=== PATIENT | female | born 1945 | race Caucasian/White ===

== ENCOUNTER 2021-02-17 16:50 | Inpatient (IN) | payer OTHER, BC, SELFPAY ==
[~2021-02-17] VITALS: Ht 157.5 cm; Wt 87.3 kg
--- NOTE | 2021-02-17 16:50 | NUR ---
Pt to bed 5 for evaluation.
[2021-02-17 16:55] VITALS: BP_SYST 189
--- NOTE | 2021-02-17 16:55 | NUR ---
Pt BIB ambulance for nausea, vomiting, and abdominal pain. Pt has been in pain x 2-3 days with 2 episodes of vomiting today. Pt has extensive medical history with candidiasis, DM, Kidney transplant status, hypothyroid, hyperlipidemia, hypertensive heart disease,afib, pressure ulcers, ESRD, and cerebral infarct.
--- NOTE | 2021-02-17 17:05 | NUR ---
Dr. Bowens at bedside to assess.
--- NOTE | 2021-02-17 17:35 | NUR ---
DR BLAKE CANCELLED ABD XRAY AND ORDERED ABD CT SCAN INSTEAD.
--- NOTE | 2021-02-17 17:37 | NUR ---
PRODUCT STEWARD AT BEDSIDE FOR BLOOD DRAW
[2021-02-17 18:08] LABS: HEMATOCRIT 36.4 % (36-48); HEMOGLOBIN 11.7 g/dL (12.0-16.0); LYMPHOCYTES # (AUTO) 0.5 K/uL (1.0-5.5); LYMPHOCYTES % (AUTO) 4.7 % (20.5-51.5); MEAN CORPUSCULAR HEMOGLOBIN 30 pg (27-31); MEAN CORPUSCULAR HGB CONC 32 % (32-36); MEAN CORPUSCULAR VOLUME 92 fL (79.0-98.0); MONOCYTES # (AUTO) 0.5 K/uL (0.0-1.0); MONOCYTES % (AUTO) 4.3 % (1.7-9.3); PLATELET COUNT (AUTO) 294 K/uL (130-430); RED BLOOD CELL COUNT(AUTO) 3.94 MIL/uL (4.2-6.2); RED CELL DISTRIBUTION WIDTH 16.4 % (9.0-15.0)
[2021-02-17] MEDS ORDERED: NACL 0.9% 1,000 ML IV ONE (18:15)
[2021-02-17] MEDS ORDERED: KETOROLAC TROMETHAMINE 15 MG VIAL IVP ONE (18:15)
--- NOTE | 2021-02-17 18:19 | NUR ---
MEDICATED ORDERED, AND TAKEN TO CT SCAN
[2021-02-17 18:26] LABS: ALANINE AMINOTRANSFERASE 12 U/L (12-78); ALBUMIN 2.5 g/dL (3.4-4.8); ANION GAP 18 (5-15); ASPARTATE AMINOTRANSFERASE 22 U/L (10-37); CALCIUM 10.7 mg/dL (8.4-11.0); CHLORIDE 95 mmol/L (98-107); CREATININE 4.74 mg/dL (0.55-1.30); GLUCOSE 281 mg/dL (70-99); LIPASE 140 U/L (73-393); SODIUM SERUM 126 mmol/L (136-145); TOTAL BILIRUBIN 0.7 mg/dL (0.0-1.0)
--- NOTE | 2021-02-17 18:36 | NUR ---
# 16 FR In and Out catheter with use of sterile technique. Immediate return of ml urine noted. Urine sample collected and sent to lab. Pt tolerated procedure . Patient unable to toilet self.
[2021-02-17 18:42] LABS: POTASSIUM 5.8 mmol/L (3.5-5.1); UREA NITROGEN, BLOOD 102 mg/dL (8-21)
[2021-02-17 19:00] LABS: BILIRUBIN,URINE NEGATIVE (NEGATIVE); BLOOD, URINE 3+ (NEGATIVE); CLARITY/URINE SL CLOUDY (CLEAR); COLOR,URINE RED (YELLOW); GLUCOSE,URINE NEGATIVE (NEGATIVE); KETONES,URINE 1+ (NEGATIVE); LEUKOCYTE ESTERASE ,URINE 3+ (NEGATIVE); NITRITE, URINE NEGATIVE (NEGATIVE); PROTEIN URINE 2+ (NEGATIVE); UROBILINOGEN,URINE 0.2 (0.2-1.0)
[2021-02-17] MEDS ORDERED: DEXTROSE 50% JECT 50 ML DISP.SYRIN IVP ONE (19:00)
[2021-02-17] MEDS ORDERED: SODIUM BICARBONATE 0.5 MEQ/ML VIAL INJ ONE (19:00)
[2021-02-17] MEDS ORDERED: CALCIUM GLUCONATE 1 GM/10 ML VIAL IVP ONE (19:00)
[2021-02-17] MEDS ORDERED: INSULIN REGULAR, HUMAN 10 UNITS/0.1 ML INJ IVP ONE (19:00)
[2021-02-17] MEDS ORDERED: SODIUM POLYSTYRENE SULFONATE 15 GM/60 ML UDBTL PO ONE (19:00)
[2021-02-17 19:02] LABS: BACTERIA,URINE MANY /HPF (None Seen); MUCUS,URINE None Seen /LPF (None Seen); RBC,URINE 50-80 /HPF (0-3); WBC,URINE >100 /HPF (0-3)
[2021-02-17 19:22] LABS: ACETONE, SERUM SMALL (NEGATIVE)
--- NOTE | 2021-02-17 19:45 | NUR ---
Patient will be admitted to care of DR SPRINGER. Admitted to TELE unit. Will go to room TBD. Belongings list completed. Complete and up to date summary report printed. SBAR report to be given at bedside with opportunity for questions.
[2021-02-17] MEDS ORDERED: SODIUM BICARBONATE 8.4% JECT 50 MEQ/50 ML SYRINGE ONE (19:56)
[2021-02-17] MEDS ORDERED: CEFEPIME 2 GM in D5W 100 ML IV ONE (20:00)
[2021-02-17] MEDS ORDERED: hydrALAZINE HCL 20 MG/ML VIAL IVP ONE (20:00)
[2021-02-17] MEDS ORDERED: 0.45% NS 1,000 ML IV SCH (20:00)
[2021-02-17] MEDS ORDERED: CEFEPIME 1 GM/VIAL (MAXIPIME) ONE (20:56)
[2021-02-17] MEDS ORDERED: INSULIN REGULAR, HUMAN 100 UNITS in NS 99 ML IV PRN ×2 (21:15)
[2021-02-17] MEDS ORDERED: INSULIN REGULAR, HUMAN 10 UNITS/0.1 ML INJ ONE (21:20)
[2021-02-17] MEDS ORDERED: NACL 0.9% 1,000 ML IV SCH (21:45)
[2021-02-17] MEDS: NACL 0.9% 1,000 ML IV SCH (22:00)
[2021-02-17] MEDS ORDERED: PIPERACILLIN/TAZO 3.375 GM in NS 50 ML IV SCH (22:00)
--- NOTE | 2021-02-17 22:30 | NUR ---
PT RECIEVED AN IN/OUT CATH FOR URINE. PT TOLERATED WELL. BROWNISH PURULENT URINE DRAINED
[2021-02-17 23:52] LABS: ANION GAP 18 (5-15); CALCIUM 10.2 mg/dL (8.4-11.0); CHLORIDE 99 mmol/L (98-107); CREATININE 4.59 mg/dL (0.55-1.30); GLUCOSE 265 mg/dL (70-99); POTASSIUM 4.9 mmol/L (3.5-5.1); SODIUM SERUM 130 mmol/L (136-145); UREA NITROGEN, BLOOD 100 mg/dL (8-21)
--- NOTE | 2021-02-18 00:30 | NUR ---
PT SLEEPING IN BED. CONSTANT MONITORING VSS. BG CHECKED EVREY HOUR
[2021-02-18] MEDS ORDERED: SODIUM BICARBONATE 8.4% JECT 50 MEQ/50 ML SYRINGE IVP ONE (02:00)
--- NOTE | 2021-02-18 02:20 | NUR ---
# 22 gauge angiocath placed to LAC. Use of asceptic technique. Opsite placed over site. Blood return noted. Flushed with 10 cc of normal saline. No evidence of infiltration noted. Patient tolerated well.
[2021-02-18] MEDS ORDERED: LABETALOL 100 MG/ 20ML VIAL ONE (04:20)
[2021-02-18] MEDS ORDERED: LABETALOL 100 MG/ 20ML VIAL IVP ONE (04:30)
[2021-02-18] MEDS ORDERED: METOCLOPRAMIDE HCL 10 MG/2 ML VIAL IVP ONE (05:30)
--- NOTE | 2021-02-18 06:00 | NUR ---
DR. RAMIREZ INFORMED OF BG. TOLD TO D/C INSULIN.
[2021-02-18 06:53] LABS: BASOPHILS % (AUTO) 0.1 % (0.0-2.0); EOSINOPHILS % (AUTO) 0.4 % (0.0-4.0); HEMATOCRIT 33.6 % (36-48); HEMOGLOBIN 10.9 g/dL (12.0-16.0); LYMPHOCYTES # (AUTO) 0.6 K/uL (1.0-5.5); LYMPHOCYTES % (AUTO) 5.9 % (20.5-51.5); MEAN CORPUSCULAR HEMOGLOBIN 29 pg (27-31); MEAN CORPUSCULAR HGB CONC 33 % (32-36); MONOCYTES # (AUTO) 0.9 K/uL (0.0-1.0); MONOCYTES % (AUTO) 9.6 % (1.7-9.3); NEUTROPHILS # (AUTO) 8.2 K/uL (1.8-7.7); PLATELET COUNT (AUTO) 262 K/uL (130-430); RED BLOOD CELL COUNT(AUTO) 3.72 MIL/uL (4.2-6.2); WHITE BLOOD COUNT (AUTO) 9.8 K/uL (4.8-10.8)
--- NOTE | 2021-02-18 07:08 | NUR ---
REPORT GIVEN TO MATILDE BUENO
[2021-02-18] MEDS ORDERED: DEXTROSE 50% JECT 50 ML DISP.SYRIN IVP PRN ×2 (07:30→09:15)
[2021-02-18] MEDS ORDERED: INSULIN REGULAR, HUMAN 100 UNITS in NS 99 ML IV PRN ×2 (07:30)
[2021-02-18] MEDS ORDERED: PANT40GR PO (07:59)
[2021-02-18] MEDS ORDERED: MAGN64TA13 PO (07:59)
[2021-02-18] MEDS ORDERED: CLOP75TA2 PO (07:59)
[2021-02-18] MEDS ORDERED: LEVO50CA4 PO (07:59)
[2021-02-18] MEDS ORDERED: MYCO250C PO (07:59)
[2021-02-18] MEDS ORDERED: PRED5TAB PO (07:59)
[2021-02-18 08:00] LABS: ANION GAP 15 (5-15); CALCIUM 9.3 mg/dL (8.4-11.0); CHLORIDE 102 mmol/L (98-107); CREATININE 4.67 mg/dL (0.55-1.30); GLUCOSE 154 mg/dL (70-99); SODIUM SERUM 137 mmol/L (136-145)
[2021-02-18 08:04] LABS: MEAN CORPUSCULAR VOLUME 90 fL (79.0-98.0)
--- NOTE | 2021-02-18 08:05 | NUR ---
bgm 193 per protocol placed on regular insu;in gtt at 0.5units per hr 0r 0.5 cc/hr
[2021-02-18 08:14] LABS: ALANINE AMINOTRANSFERASE 10 U/L (12-78); ALBUMIN 2.1 g/dL (3.4-4.8); ASPARTATE AMINOTRANSFERASE 16 U/L (10-37); CHOLESTEROL 102 mg/dL (<200); HDL CHOLESTEROL 19 mg/dL (>55); LDL CHOLESTEROL 40 mg/dL (<100); THYROID STIMULATING HORMONE 1.93 uIu/mL (0.34-4.82); TOTAL BILIRUBIN 0.3 mg/dL (0.0-1.0); TRIGLYCERIDES 137 mg/dL (30-150)
[2021-02-18] MEDS ORDERED: ONDANSETRON HCL 4 MG/2 ML VIAL IVP ONE (08:15)
[2021-02-18] MEDS ORDERED: ONDANSETRON HCL 4 MG/2 ML VIAL ONE (08:22)
--- NOTE | 2021-02-18 08:50 | NUR ---
UPDATE AND PLAN OF CARE GIVEN TO STEPHANIE PTS DAUGHTER [phone]
[2021-02-18 08:55] LABS: UREA NITROGEN, BLOOD 101 mg/dL (8-21)
--- NOTE | 2021-02-18 08:56 | NUR ---
bgm 188 no change in insulin drip remains at 0.5 units per hour
--- NOTE | 2021-02-18 09:04 | NUR ---
DC INSULIN GTT PER MD ORDERS
[2021-02-18] MEDS ORDERED: GLUCOSE (DEXTROSE) ORAL GEL -Adults PO PRN (09:15)
[2021-02-18] MEDS ORDERED: D5W 1,000 ML IV PRN (09:15)
--- NOTE | 2021-02-18 10:14 | NUR ---
PT PLACED IN HOSPITAL BED
--- NOTE | 2021-02-18 11:15 | NUR ---
BGM 221`
[2021-02-18] MEDS ORDERED: INSULIN REGULAR, HUMAN 10 UNITS/0.1 ML INJ ONE (11:22)
--- NOTE | 2021-02-18 11:23 | NUR ---
BGM 221 COVERED WITH 4 UNITS HUMULIN REGULAR INSULIN SQ RIGHT ABDOMEN
--- NOTE | 2021-02-18 12:12 | NUR ---
GRAM NEG RODS BC FROM YESTERDAY DR SPRINGER CALLED
--- NOTE | 2021-02-18 13:54 | NUR ---
CONSULTATION PAGED/CALLED Reason for Consultation: [] HTN URGENCY Person Who was Notified: [] NICKOLAS ADEN Consulting Physician: [] DR NICKOLAS ART Radio Operator Ground Specialty: [] CARDIO Ordering Physician: [] LINOTYPER MS Anand HENSON/DR SPRINGER
--- NOTE | 2021-02-18 13:57 | NUR ---
Patient will be admitted to [facility]. Admitted to TELE unit. Will go to room 118. Belongings list completed. Complete and up to date summary report printed. SBAR report to be given at bedside with opportunity for questions.
[2021-02-18 14:00] VITALS: BP_SYST 130
--- NOTE | 2021-02-18 14:01 | NUR ---
CONSULTATION PAGED/CALLED Reason for Consultation: [] DM Person Who was Notified: [] LEFT A VOICE MESSAGE Consulting Physician: [] DR ROSARIO SAYED Natural Gas Technician Specialty: [] ENDOCRINE Ordering Physician: [] VASCULAR SONOGRAPHER MS Anand HENSON/DR SPRINGER
--- NOTE | 2021-02-18 14:30 | NUR ---
IV INFILTRATION IV ON LEFT FOREARM NOTED TO BE LEAKING. IV REMOVED. ATTEMPTED TO INSERT AN IV ON RIGHT FOREARM BUT FAILED. PATIENT HAS MULTIPLE BRUISES ON BOTH ARMS, MAKING IT DIFFICULT TO INSERT AN IV. WILL TRY AGAIN. SAFETY CHECKS DONE. CALL LIGHT WITHIN REACH.
[2021-02-18 14:56] VITALS: BP_SYST 130
--- NOTE | 2021-02-18 15:30 | NUR ---
IV INSERTION SUCCESSFULLY INSERTED AN IV GAUGE 22 ON LEFT FOREARM. HOOKED TO IV FLUIDS, INFUSING WELL. PATIENT IS RESTLESS IN BED. REMOVES GOWN AND TELE MONITOR. EDUCATION PROVIDED BUT PATIENT DID NOT VERBALIZE UNDERSTANDING. FALL AND SAFETY CHECKS DONE. CALL LIGHT WITHIN REACH. ENCOURAGED PATIENT TO CALL ANYTIME FOR HELP BUT PATIENT SEEMED CONFUSED. WILL CLOSELY MONITOR.
[2021-02-18] MEDS ORDERED: [UNRECOGNIZED DRUG - OTHER] IV SCH (17:00)
[2021-02-18] MEDS ORDERED: NIFEdipine 30 MG TAB.ER.24 PO ONE (17:30)
[2021-02-18] MEDS ORDERED: hydrALAZINE HCL 20 MG/ML VIAL IVP PRN (17:30)
[2021-02-18] MEDS: NACL 0.9% 1,000 ML IV SCH (18:00)
[2021-02-18] MEDS: INSULIN REGULAR, HUMAN 100 UNITS/ML, 10 ML VIAL (humuLIN R) SUBCUT PRN (18:06)
--- NOTE | 2021-02-18 18:55 | NUR ---
CLOSING NOTES SEEN AND EXAMINED BY DR. VALDIVIA AT BEDSIDE. IV FLUIDS STILL INFUSING WELL, NO SIGN OF INFILTRATION ON IV SITE. ALL NEEDS MET THROUGHOUT SHIFT. PATIENT STILL DENIES ANY PAIN. NO SHORTNESS OF BREATH ON ROOM AIR. COOPERATIVE AT THIS TIME. CALL LIGHT WITHIN REACH.
[2021-02-18] MEDS ORDERED: PIPERACILLIN/TAZO 2.25G/DEX-IS 50 ML IV SCH (19:51)
[2021-02-18] MEDS ORDERED: TACROLIMUS ANHYDROUS 1 MG CAPSULE (PROGRAF) PO ONE (20:00)
[2021-02-18 20:20] VITALS: BP_SYST 97
--- NOTE | 2021-02-18 20:20 | NUR ---
Opening noes Pt AAOx1-2, VSS, afebrile. No s/s distress noted. No vomitting noted. IVF infusing at ordered rate L. FA 22G no s/s infiltration. Call light within reach. Bed low, locked, siderails up x3, alarm on. Pt near nursing station to be monitored closely.
[2021-02-18] MEDS: MAGNESIUM CHLORIDE 64 MG TABLET.DR PO SCH (21:42)
[2021-02-18] MEDS: mycophenolate mofetiL 250 MG CAPSULE PO SCH (21:42)
[2021-02-18] MEDS: PANTOPRAZOLE SODIUM 40 MG TAB PO SCH (21:42)
--- NOTE | 2021-02-18 21:42 | NUR ---
Med pass Pt alert, awake, scheduled meds passed crushed w/ applesauce. No coughing noted. Aspiration precautions maintained. To monitor.
[2021-02-18] MEDS: CEFEPIME 1 GM in D5W 50 ML IV SCH (22:01)
[2021-02-19 00:42] VITALS: BP_SYST 132
[2021-02-19] MEDS: PIPERACILLIN/TAZO 2.25G/DEX-IS 50 ML IV SCH ×3 (02:00→17:31)
--- NOTE | 2021-02-19 05:20 | NUR ---
Nutrition Update Fortunato Scale 14 noted. Pt admitted for Acute Renal Failure Diet: 2gm Na BMI: 30.2 kg/m2 RD to follow per nutrition care standards.
[2021-02-19] MEDS: LEVOTHYROXINE SODIUM 0.05 MG TABLET PO SCH (06:16)
[2021-02-19] MEDS: INSULIN REGULAR, HUMAN 100 UNITS/ML, 10 ML VIAL (humuLIN R) SUBCUT PRN (06:23)
--- NOTE | 2021-02-19 06:30 | NUR ---
Closing notes Pt asleep, easily awakens. No s/s distress noted. BS checked 161, 2 units Regular insulin administered. New IV bag kyle L. FA 22G no s/s infiltration. Pt anuric. Call light within reach. Bed low, locked, siderails up x3, alarm on. Will endorse to AM nurse to clarify with ID doctor which antibiotic to give.
[2021-02-19 06:34] LABS: BASOPHILS # (AUTO) 0.1 K/uL (0.0-0.2); BASOPHILS % (AUTO) 0.8 % (0.0-2.0); EOSINOPHILS # (AUTO) 0.2 K/uL (0.0-0.4); EOSINOPHILS % (AUTO) 2.8 % (0.0-4.0); HEMATOCRIT 31.7 % (36-48); HEMOGLOBIN 10.3 g/dL (12.0-16.0); LYMPHOCYTES # (AUTO) 0.6 K/uL (1.0-5.5); LYMPHOCYTES % (AUTO) 7.8 % (20.5-51.5); MEAN CORPUSCULAR HEMOGLOBIN 29 pg (27-31); MEAN CORPUSCULAR HGB CONC 33 % (32-36); MEAN CORPUSCULAR VOLUME 90 fL (79.0-98.0); MONOCYTES # (AUTO) 0.9 K/uL (0.0-1.0); NEUTROPHILS # (AUTO) 5.3 K/uL (1.8-7.7); NEUTROPHILS % (AUTO) 75.6 % (40.0-70.0); PLATELET COUNT (AUTO) 239 K/uL (130-430); RED BLOOD CELL COUNT(AUTO) 3.51 MIL/uL (4.2-6.2)
[2021-02-19] MEDS: NACL 0.9% 1,000 ML IV SCH (06:40)
[2021-02-19 07:12] LABS: ANION GAP 13 (5-15); CALCIUM 9.1 mg/dL (8.4-11.0); CHLORIDE 103 mmol/L (98-107); CREATININE 4.72 mg/dL (0.55-1.30); GLUCOSE 163 mg/dL (70-99); PHOSPHORUS 3.5 mg/dL (2.7-4.5); POTASSIUM 4.2 mmol/L (3.5-5.1); SODIUM SERUM 136 mmol/L (136-145); UREA NITROGEN, BLOOD 94 mg/dL (8-21)
[2021-02-19 07:23] LABS: URIC ACID 9.4 mg/dL (2.4-7.0)
[2021-02-19 08:00] VITALS: BP_SYST 125
[2021-02-19] MEDS ORDERED: CLOPIDOGREL BISULFATE 75 MG TABLET PO SCH (09:00)
[2021-02-19] MEDS: NIFEdipine 30 MG TAB.ER.24 PO SCH (10:08)
[2021-02-19] MEDS: PANTOPRAZOLE SODIUM 40 MG TAB PO SCH ×2 (10:09→22:02)
[2021-02-19] MEDS: TACROLIMUS ANHYDROUS 1 MG CAPSULE (PROGRAF) PO SCH ×2 (10:09→23:01)
[2021-02-19] MEDS: ASPIRIN 81 MG TABLET(ECOTRIN) PO SCH (10:09)
[2021-02-19] MEDS: mycophenolate mofetiL 250 MG CAPSULE PO SCH ×2 (10:12→23:00)
[2021-02-19] MEDS: MAGNESIUM CHLORIDE 64 MG TABLET.DR PO SCH ×2 (10:13→23:01)
--- NOTE | 2021-02-19 12:00 | NUR ---
bladder scan done with 335ml residual, called and notified,inserted 16 FR lopez catheter drains beige color urine 600ml,urine collected and sent to lab per order.start 24 hr urine collection per dr chaudhari mag level 2.4 per am lab,ok to continue slow mag per dr godinez order.uric acid elevated to 9.4,started allopurinal 100mg po BID as per order.continue IVF infusion.
[2021-02-19] MEDS ORDERED: ALLOPURINOL 100 MG TABLET (ZYLOPRIM) PO ONE (12:45)
[2021-02-19] MEDS ORDERED: COMMUNICATION ORDER XX ONE (12:45)
[2021-02-19 13:15] VITALS: BP_SYST 111
[2021-02-19 16:40] LABS: OSMOLALITY,URINE 355 mOsm/L (50-1200); URINE SODIUM, RANDOM 98 mmol/L (40-220)
[2021-02-19 17:26] VITALS: BP_SYST 137
--- NOTE | 2021-02-19 18:23 | NUR ---
CONSULTATION PAGED/CALLED Reason for Consultation: UTI Person Who was Notified: PARAM Consulting Physician: Anand COOPER Barrel Planer Specialty: Ordering Physician: GIAN
[2021-02-19] MEDS ORDERED: FUROSEMIDE 20 MG/2 ML VIAL IVP ONE (18:45)
--- NOTE | 2021-02-19 18:53 | NUR ---
closing notes: pt family visited at bedside and found pt more altered,delusional and not responding to them,updated of pt condition per nursing level of knowledge,another daughter doug called and concerned worried about pt getting IVF overloaded and current antibitoic zosyn makes kidney injury, called and notified,orders received for ID consult and keep IVF TKO rate, called and notified of ID consult and said he's coming to see pt.daugher doug called again and wants to pt get diuretic or patient will have fluid overload problem. called and notified and called dr. godinez per dr cowan requests, called back and made awared of daughter needs,order received for CXR and give lasix 20mg IV once per dr chaudhari.family at bedside and keep updated of treatment orders.
[2021-02-19 19:30] VITALS: BP_SYST 116
[2021-02-19] MEDS: ALLOPURINOL 100 MG TABLET (ZYLOPRIM) PO SCH (22:02)
[2021-02-19] MEDS: CEFEPIME 1 GM in D5W 50 ML IV SCH (23:25)
[2021-02-20 01:15] VITALS: BP_SYST 145
[2021-02-20] MEDS: PIPERACILLIN/TAZO 2.25G/DEX-IS 50 ML IV SCH ×3 (02:49→18:10)
[2021-02-20 06:49] LABS: ALANINE AMINOTRANSFERASE 12 U/L (12-78); ANION GAP 12 (5-15); ASPARTATE AMINOTRANSFERASE 15 U/L (10-37); CALCIUM 8.7 mg/dL (8.4-11.0); CHLORIDE 104 mmol/L (98-107); CREATININE 4.33 mg/dL (0.55-1.30); GLUCOSE 197 mg/dL (70-99); POTASSIUM 3.9 mmol/L (3.5-5.1); SODIUM SERUM 135 mmol/L (136-145); TOTAL BILIRUBIN 0.5 mg/dL (0.0-1.0); UREA NITROGEN, BLOOD 86 mg/dL (8-21)
[2021-02-20 06:56] LABS: BASOPHILS % (AUTO) 0.6 % (0.0-2.0); EOSINOPHILS # (AUTO) 0.2 K/uL (0.0-0.4); HEMATOCRIT 31.3 % (36-48); HEMOGLOBIN 10.2 g/dL (12.0-16.0); LYMPHOCYTES # (AUTO) 0.8 K/uL (1.0-5.5); LYMPHOCYTES % (AUTO) 12.6 % (20.5-51.5); MEAN CORPUSCULAR HEMOGLOBIN 29 pg (27-31); MEAN CORPUSCULAR HGB CONC 33 % (32-36); MEAN CORPUSCULAR VOLUME 90 fL (79.0-98.0); MONOCYTES # (AUTO) 0.6 K/uL (0.0-1.0); MONOCYTES % (AUTO) 10.7 % (1.7-9.3); NEUTROPHILS # (AUTO) 4.3 K/uL (1.8-7.7); NEUTROPHILS % (AUTO) 72.1 % (40.0-70.0); PLATELET COUNT (AUTO) 239 K/uL (130-430); RED BLOOD CELL COUNT(AUTO) 3.47 MIL/uL (4.2-6.2); RED CELL DISTRIBUTION WIDTH 16.2 % (9.0-15.0); WHITE BLOOD COUNT (AUTO) 5.9 K/uL (4.8-10.8)
[2021-02-20] MEDS: LEVOTHYROXINE SODIUM 0.05 MG TABLET PO SCH (07:18)
[2021-02-20 08:00] VITALS: BP_SYST 130
[2021-02-20] MEDS: ALLOPURINOL 100 MG TABLET (ZYLOPRIM) PO SCH ×2 (09:03→21:58)
[2021-02-20] MEDS: mycophenolate mofetiL 250 MG CAPSULE PO SCH ×2 (09:03→21:58)
[2021-02-20] MEDS: TACROLIMUS ANHYDROUS 1 MG CAPSULE (PROGRAF) PO SCH ×2 (09:03→21:57)
[2021-02-20] MEDS: NIFEdipine 30 MG TAB.ER.24 PO SCH (09:03)
[2021-02-20] MEDS: PANTOPRAZOLE SODIUM 40 MG TAB PO SCH ×2 (09:04→21:58)
[2021-02-20] MEDS: MAGNESIUM CHLORIDE 64 MG TABLET.DR PO SCH ×2 (09:04→21:58)
[2021-02-20] MEDS: ASPIRIN 81 MG TABLET(ECOTRIN) PO SCH (09:04)
[2021-02-20] MEDS: ONDANSETRON HCL 4 MG/2 ML VIAL IVP PRN ×2 (10:35→18:42)
[2021-02-20] MEDS: INSULIN REGULAR, HUMAN 100 UNITS/ML, 10 ML VIAL (humuLIN R) SUBCUT PRN (11:56)
[2021-02-20 12:00] VITALS: BP_SYST 138
--- NOTE | 2021-02-20 14:00 | NUR ---
WOUND EVALUATION: Late note for 02/20/2021 at 1400 secondary to patient care. Wound Consult received from Dr. Chan. Thank you, Dr. Chan, for the consult. Patient received in a Riddle Bed with a mattress, awake, alert, and oriented. Patient is unable to turn in bed independently. Fortunato Score is a 12. Past Medical History: CKD Stage V, Right Kidney Transplant, Diabetes Mellitus type 2, Hypertension, Hypothyroidism, Dyslipidemia, chronic Atrial Fibrillation. Recent Labs: WBC 5.9, RBC 3.47, hemoglobin 10.2, hematocrit 31.3, BUN 86, creatinine 4.33, glucose 197, POC glucose 235, albumin 2.0. Microbiology: New blood culture results x2 in progress. MRSA screen results negative. Urine culture results positive for Klebsiella pneumoniae. Blood culture results positive for Klebsiella pneumonia. Intrinsic factors that delay wound healing: CKD Stage V, Diabetes Mellitus type 2, chronic Atrial Fibrillation, severe Protein-Calorie Malnutrition. Extrinsic factors that delay wound healing: Immobility. Per assessment by Dr. Acuña: Impression: Gram-negative sabina sepsis, Urinary Tract Infection, Pyelonephritis, Abdominal pain, Severe Protein-Calorie Malnutrition, status post renal transplant, immunocompromised state because of immunosuppressive therapy, Acute on Chronic Kidney Disease, Diabetes Mellitus Type 2, Hypertension, Hypothyroidism. Dyslipidemia, Chronic Atrial Fibrillation. Wound Assessment: 1. Right Posterior Heel: Unstageable pressure ulcer, present on admission. Wound bed has 60% brown eschar, 40% black eschar. No odor, no drainage. Periwound intact. Small open area around 11:00 with scant yellow drainage. Recommend: Cleanse cleanse wound with normal saline. Apply moisture barrier cream to mckenna-wound. Apply Venelex ointment to wound bed. Cover with foam dressing. Perform wound care daily, and as needed for dressing soiling or dislodgement. Elevate bilateral lower extremities with one pillow lengthwise under each extremity at all times. Do not allow right heel wound site to touch bed or other surfaces at any time. 2. Sacral-Coccygeal/Buttocks areas: Blanchable redness from IAD and dark discoloration (possible sDTI), present on admission. Recommend: Cleanse involved areas with mild soap and water. Apply moisture barrier cream to involved areas. Cover site with Sacral foam dressing. Perform site care daily, and as needed for dressing soiling or dislodgment. Do not place patient flat on her back at any time. 3. Mckenna-anal areas: Dark discolored skin, present on admission. Recommend: Cleanse involved areas with mild soap and water. Pat dry. Apply moisture barrier cream to involved areas. Perform site care qid, and as needed for soiling. Do not place patient flat on her back at any time. Also recommend: Encourage and assist patient with repositioning side to side only every 2 hours with pillow support and off-load pressure areas with pillows for pressure re-distribution. Offload, elevate and float bilateral heels with one pillow lengthwise under each extremity at all times. Do not place patient flat on her back at any time. Perform skin care and monitor skin integrity Q shift. Use moisture barrier cream on buttocks and other moisture susceptible areas QID and as needed for soiling. Place patient on a low air-loss mattress. Recommend surgical consult for right heel wound.
[2021-02-20 16:00] VITALS: BP_SYST 134
[2021-02-20 18:42] LABS: COLLECTION TIME,URINE 24 HR; SODIUM TIMED,URINE 99 mmol/L; SODIUM URINE, 24HR CALC 208 mmol/24H (40-220); TOTAL VOLUME 24HRS,URINE 2100 mL
--- NOTE | 2021-02-20 19:17 | NUR ---
closing notes awake,confused,moans and groans only,IV restarted in right arm 24 gauge x2 attempts,continue IV antibiotic due pt is nauseated,give zofran 4mg IV as prn order for nausea,lopez catheter drains pinkish urine,and irrigated with NS prn to clear.needs atttended,call light & personal items within pt reach,safety maintained.family at bedside and updated of pt condition per nursing level of knowledge.report endorsed to casino shift manager nurse.
[2021-02-20 20:00] VITALS: BP_SYST 106
[2021-02-21] VITALS: BP_SYST 113
[2021-02-21] MEDS: INSULIN REGULAR, HUMAN 100 UNITS/ML, 10 ML VIAL (humuLIN R) SUBCUT PRN ×2 (00:40→18:23)
[2021-02-21] MEDS: PIPERACILLIN/TAZO 2.25G/DEX-IS 50 ML IV SCH ×3 (03:56→18:23)
[2021-02-21] MEDS: LEVOTHYROXINE SODIUM 0.05 MG TABLET PO SCH (07:26)
[2021-02-21] MEDS: MAGNESIUM CHLORIDE 64 MG TABLET.DR PO SCH ×2 (09:00→22:03)
[2021-02-21] MEDS: NIFEdipine 30 MG TAB.ER.24 PO SCH (09:00)
[2021-02-21] MEDS: ALLOPURINOL 100 MG TABLET (ZYLOPRIM) PO SCH ×2 (09:00→22:03)
[2021-02-21] MEDS: mycophenolate mofetiL 250 MG CAPSULE PO SCH ×2 (09:00→22:03)
[2021-02-21] MEDS: PANTOPRAZOLE SODIUM 40 MG TAB PO SCH ×2 (09:00→22:03)
[2021-02-21] MEDS: TACROLIMUS ANHYDROUS 1 MG CAPSULE (PROGRAF) PO SCH ×2 (09:00→22:03)
[2021-02-21] MEDS: ASPIRIN 81 MG TABLET(ECOTRIN) PO SCH (09:00)
[2021-02-21 09:30] VITALS: BP_SYST 158
[2021-02-21 12:00] VITALS: BP_SYST 140
--- NOTE | 2021-02-21 12:20 | NUR ---
CONSULTATION PAGED/CALLED Reason for Consultation: [] ALOC Person Who was Notified: [] DR SIDDIQUI Consulting Physician: [] DR Adriana SIDDIQUI Real Estate Associate Specialty: [] NEURO Ordering Physician: [] DR SPRINGER
[2021-02-21] MEDS: D5NS 1,000 ML IV SCH (14:05)
--- NOTE | 2021-02-21 15:16 | NUR ---
Dietitian Recommendations * Continue renal, puree diet (Meghan josueud be coming standard w/ this diet moving forward -- this ONS would provide 1260 kcal/day, 57 gm protein/day) * Encourage increase PO intakes * Consider alternative nutrition support within 1 week if PO intakes do not improve LP, RD Please refer to Nutrition Assessment for details. Addendum: 02/21/21 at [address] Amended: Links added.
[2021-02-21 16:14] VITALS: BP_SYST 149
[2021-02-21] MEDS ORDERED: MENTHOL/ZINC OXIDE 113 GM OINT. TP PRN (16:30)
[2021-02-21] MEDS ORDERED: BALSAM PERU/CASTOR OIL 60 GM OINT...G. TP ONE (17:30)
[2021-02-21 20:30] VITALS: BP_SYST 116
[2021-02-22 00:58] VITALS: BP_SYST 143
[2021-02-22] MEDS: INSULIN REGULAR, HUMAN 100 UNITS/ML, 10 ML VIAL (humuLIN R) SUBCUT PRN ×3 (01:01→17:25)
[2021-02-22] MEDS: PIPERACILLIN/TAZO 2.25G/DEX-IS 50 ML IV SCH ×3 (02:35→17:13)
[2021-02-22] MEDS: LEVOTHYROXINE SODIUM 0.05 MG TABLET PO SCH (07:06)
[2021-02-22 07:39] LABS: ANION GAP 15 (5-15); CALCIUM 8.7 mg/dL (8.4-11.0); CHLORIDE 110 mmol/L (98-107); CREATININE 4.58 mg/dL (0.55-1.30); GLUCOSE 143 mg/dL (70-99); POTASSIUM 3.4 mmol/L (3.5-5.1); SODIUM SERUM 144 mmol/L (136-145); UREA NITROGEN, BLOOD 80 mg/dL (8-21)
[2021-02-22 07:40] LABS: BASOPHILS # (AUTO) 0.1 K/uL (0.0-0.2); EOSINOPHILS # (AUTO) 0.3 K/uL (0.0-0.4); EOSINOPHILS % (AUTO) 3.5 % (0.0-4.0); HEMOGLOBIN 10.3 g/dL (12.0-16.0); LYMPHOCYTES # (AUTO) 1.1 K/uL (1.0-5.5); LYMPHOCYTES % (AUTO) 13.4 % (20.5-51.5); MEAN CORPUSCULAR HEMOGLOBIN 29 pg (27-31); MEAN CORPUSCULAR HGB CONC 32 % (32-36); MEAN CORPUSCULAR VOLUME 91 fL (79.0-98.0); MONOCYTES # (AUTO) 0.6 K/uL (0.0-1.0); MONOCYTES % (AUTO) 7.7 % (1.7-9.3); NEUTROPHILS # (AUTO) 6.2 K/uL (1.8-7.7); NEUTROPHILS % (AUTO) 74.4 % (40.0-70.0); PLATELET COUNT (AUTO) 221 K/uL (130-430); RED BLOOD CELL COUNT(AUTO) 3.52 MIL/uL (4.2-6.2); RED CELL DISTRIBUTION WIDTH 16.3 % (9.0-15.0); WHITE BLOOD COUNT (AUTO) 8.4 K/uL (4.8-10.8)
--- NOTE | 2021-02-22 07:40 | NUR ---
AM ASSESSMENT MANAGER POWER AT BEDSIDE, AND SHE INFORMED NURSE THAT THE PT'S IV CAME OUT. ATTEMPTED TO INSERT IV 2 TIMES, ABLE TO INSERT INTO LEFT FOREARM, USING 24 GAUGE CATHETER, WITH GOOD BLOOD RETURN NOTED. WRAPPED ARM WITH COURTNEY BANDAGE TO SECURE CATH.
[2021-02-22 08:00] VITALS: BP_SYST 154
[2021-02-22] MEDS: ASPIRIN 81 MG TABLET(ECOTRIN) PO SCH (09:29)
[2021-02-22] MEDS: ALLOPURINOL 100 MG TABLET (ZYLOPRIM) PO SCH (09:29)
[2021-02-22] MEDS: NIFEdipine 30 MG TAB.ER.24 PO SCH (09:30)
[2021-02-22] MEDS: PANTOPRAZOLE SODIUM 40 MG TAB PO SCH (09:30)
[2021-02-22] MEDS: BALSAM PERU/CASTOR OIL 60 GM OINT...G. TP SCH (09:32)
[2021-02-22] MEDS: MAGNESIUM CHLORIDE 64 MG TABLET.DR PO SCH ×2 (09:32→21:00)
[2021-02-22] MEDS: mycophenolate mofetiL 250 MG CAPSULE PO SCH (09:32)
[2021-02-22] MEDS: TACROLIMUS ANHYDROUS 1 MG CAPSULE (PROGRAF) PO SCH (09:33)
[2021-02-22 12:58] VITALS: BP_SYST 105
--- NOTE | 2021-02-22 13:53 | NUR ---
ST EVALUATION COMPLETED. ST TX NOT INDICATED AT THIS TIME. RECOMMEND NPO WITH ALTERNATIVE MEANS OF NUTRITION DUE TO PT LETHARGY AND DECREASED SWALLOW FUNCTION.
--- NOTE | 2021-02-22 15:27 | NUR ---
TEST EEG IN PROGRESS AT THIS HOUR.
[2021-02-22] MEDS ORDERED: KCL 20 mEq in 100 mL (PREMIX) 100 ML IV ONE (16:15)
[2021-02-22 16:54] VITALS: BP_SYST 111
--- NOTE | 2021-02-22 18:09 | NUR ---
DIVISION SALES MANAGER GABBIE DIVISION SALES MANAGER AT BEDSIDE, NEW ORDERS RECEIVED, WILL CANCELL KRIDER AND ATTEMPT TO GIVE POTASSIUM MIXED IN JUICE WHILE FAMILY IS AROUND.
[2021-02-22] MEDS ORDERED: POTASSIUM CHLORIDE 20 MEQ/PKT PACKET PO ONE (18:15)
[2021-02-22] MEDS: D5NS 1,000 ML IV SCH (18:29)
[2021-02-22 19:00] VITALS: BP_SYST 107
[2021-02-22 20:00] VITALS: BP_SYST 130
--- NOTE | 2021-02-22 20:16 | NUR ---
Family member (Ana Laura) asked that IV KCl NOT be administered tonight in the event pt passes swallow evaluation. Ana Laura relayed that family would rather have pt take po KCl over IV route since IV route "irritates" veins while po route does not.
[2021-02-22] MEDS ORDERED: cefTRIAXone 1 GM VIAL ONE (22:25)
[2021-02-23 00:30] VITALS: BP_SYST 92
[2021-02-23] MEDS: ALLOPURINOL 100 MG TABLET (ZYLOPRIM) PO SCH ×3 (00:38→20:35)
[2021-02-23] MEDS: PANTOPRAZOLE SODIUM 40 MG TAB PO SCH ×3 (00:41→20:32)
[2021-02-23] MEDS: mycophenolate mofetiL 250 MG CAPSULE PO SCH ×3 (00:43→20:36)
[2021-02-23] MEDS: TACROLIMUS ANHYDROUS 1 MG CAPSULE (PROGRAF) PO SCH ×3 (00:46→20:33)
[2021-02-23] MEDS: LEVOTHYROXINE SODIUM 0.05 MG TABLET PO SCH (06:16)
[2021-02-23] MEDS: INSULIN REGULAR, HUMAN 100 UNITS/ML, 10 ML VIAL (humuLIN R) SUBCUT PRN ×2 (07:21→11:51)
[2021-02-23 07:33] LABS: BASOPHILS # (AUTO) 0.1 K/uL (0.0-0.2); BASOPHILS % (AUTO) 0.7 % (0.0-2.0); EOSINOPHILS # (AUTO) 0.2 K/uL (0.0-0.4); EOSINOPHILS % (AUTO) 2.7 % (0.0-4.0); HEMATOCRIT 32.5 % (36-48); HEMOGLOBIN 10.3 g/dL (12.0-16.0); LYMPHOCYTES # (AUTO) 1.2 K/uL (1.0-5.5); MEAN CORPUSCULAR HEMOGLOBIN 29 pg (27-31); MEAN CORPUSCULAR HGB CONC 32 % (32-36); MEAN CORPUSCULAR VOLUME 92 fL (79.0-98.0); MONOCYTES # (AUTO) 0.6 K/uL (0.0-1.0); MONOCYTES % (AUTO) 7.8 % (1.7-9.3); NEUTROPHILS # (AUTO) 5.9 K/uL (1.8-7.7); NEUTROPHILS % (AUTO) 73.8 % (40.0-70.0); PLATELET COUNT (AUTO) 191 K/uL (130-430); RED BLOOD CELL COUNT(AUTO) 3.54 MIL/uL (4.2-6.2); RED CELL DISTRIBUTION WIDTH 16.4 % (9.0-15.0)
--- NOTE | 2021-02-23 08:00 | NUR ---
NOTES PATIENT ALERT AWAKE X 2. LUNGS BILATERALLY DIMINISHED AT THE BASES. ABDOMEN SOFT AND NON DISTENDED. HAS IV ACCESS ON THE LEFT FOREARM #22. D5NS AT 40CC/HR INFUSING ON WELL. CALL LIGHTS WITHIN REACH. BED LOW POSITION, ALARMED AND LOCKED. WILL CONTINUE
[2021-02-23 09:14] LABS: ANION GAP 14 (5-15); CALCIUM 8.4 mg/dL (8.4-11.0); CHLORIDE 111 mmol/L (98-107); GLUCOSE 250 mg/dL (70-99); POTASSIUM 3.4 mmol/L (3.5-5.1); SODIUM SERUM 142 mmol/L (136-145); UREA NITROGEN, BLOOD 80 mg/dL (8-21); URIC ACID 7.4 mg/dL (2.4-7.0)
[2021-02-23] MEDS: NIFEdipine 30 MG TAB.ER.24 PO SCH (09:55)
[2021-02-23] MEDS: MAGNESIUM CHLORIDE 64 MG TABLET.DR PO SCH ×2 (09:56→20:33)
[2021-02-23] MEDS: ASPIRIN 81 MG TABLET(ECOTRIN) PO SCH (09:57)
[2021-02-23] MEDS: BALSAM PERU/CASTOR OIL 60 GM OINT...G. TP SCH (09:57)
[2021-02-23] MEDS ORDERED: POTASSIUM CHLORIDE 20 MEQ TAB.PRT.SR ONE (10:07)
--- NOTE | 2021-02-23 10:15 | NUR ---
DUE MEDS GIVEN AT THIS TIME. CRUSHED MEDS WITH APPLE SAUCE.
[2021-02-23 10:22] VITALS: BP_SYST 151
[2021-02-23 12:00] VITALS: BP_SYST 114
--- NOTE | 2021-02-23 12:02 | NUR ---
LATEST BS 224 MG/DL. COVERAGE GIVEN ORDERED.
--- NOTE | 2021-02-23 13:32 | NUR ---
PEPITO SWALLOW EVALUATION TECH CAME PATIENT FAILED TO PASSED SWALLOW EVALUATION DUE TO POCKETING OF FOODS BOTH SIDES OF THE MOUTH.
--- NOTE | 2021-02-23 13:58 | NUR ---
PT WAS SEEN FOR DYSPHAGIA. PT WAS POCKETING AND SEVERE DELAY IN SWALLOW. COMMUNICATED WITH NURSE FOR NPO AND ALTERNATE MODE OF FEEDING. RECOMMENDATION NOTHING BY MOUTH
--- NOTE | 2021-02-23 15:14 | NUR ---
DR SHEA LÓPEZ CAME AND EVALUATE THE PATIENT AND MADE ORDERS FOR NGT PLACEMENT/MIDLINE AND SOFT WRIST RESTRAINT POSSIBLE.
[2021-02-23] MEDS ORDERED: POTASSIUM CHLORIDE 20 MEQ/PKT PACKET PO ONE (15:15)
[2021-02-23] MEDS ORDERED: SODIUM BICARBONATE 650 MG TABLET PO ONE (15:15)
[2021-02-23 16:03] VITALS: BP_SYST 149
--- NOTE | 2021-02-23 17:20 | NUR ---
MIDLINE CONSENT SIGNED N SENT TO NURSE CHICKEN SEXER
[2021-02-23] MEDS: SODIUM BICARBONATE 650 MG TABLET PO SCH (20:32)
[2021-02-24] VITALS (9 sets, daily range): BP systolic 134–157
--- NOTE | 2021-02-24 05:08 | NUR ---
RECIEVED REPORT FROM CHA BUENO. PT IS AOX1, BED REST ON RESTRATRAINTS FOR PULLING NG TUBE. MIDLINE TO BE PLACED. NO PICCC LINE NURSE ARRIVED AT MS UNIT. NOTIFIED VEST BASTER,WITH PRINTED ORDER. CONSCENT SIGNED AND EQUIPTMENT AT BEDSIDE. WILL CONTINUE TO MONITOR
[2021-02-24] MEDS: INSULIN REGULAR, HUMAN 100 UNITS/ML, 10 ML VIAL (humuLIN R) SUBCUT PRN ×3 (06:10→20:57)
--- NOTE | 2021-02-24 08:11 | NUR ---
NOTES PATIENT AAOX 1. VITALS SIGNS STABLE. AFEBRILE. LUNGS BILATERALLY DIMINISHED AT THE BASES. ABDOMEN SOFT AND NON DISTENDED. BOTH ARMS SCATTERED ECCHYMOSIS NOTED. NO ODOR NOTED NOR DRAINAGE NOTED. CALL LIGHTS WITHIN REACH. BED LOW POSITION, ALARMED AND LOCKED. WILL CONTINUE
--- NOTE | 2021-02-24 08:13 | NUR ---
STILL HAS NGT CLAMPED NOTED
[2021-02-24 08:14] LABS: BASOPHILS # (AUTO) 0.1 K/uL (0.0-0.2); BASOPHILS % (AUTO) 0.7 % (0.0-2.0); EOSINOPHILS # (AUTO) 0.2 K/uL (0.0-0.4); EOSINOPHILS % (AUTO) 2.2 % (0.0-4.0); HEMATOCRIT 33.8 % (36-48); HEMOGLOBIN 10.7 g/dL (12.0-16.0); LYMPHOCYTES % (AUTO) 12.9 % (20.5-51.5); MEAN CORPUSCULAR HEMOGLOBIN 29 pg (27-31); MEAN CORPUSCULAR HGB CONC 32 % (32-36); MEAN CORPUSCULAR VOLUME 93 fL (79.0-98.0); MONOCYTES # (AUTO) 0.6 K/uL (0.0-1.0); MONOCYTES % (AUTO) 7.8 % (1.7-9.3); NEUTROPHILS # (AUTO) 5.8 K/uL (1.8-7.7); NEUTROPHILS % (AUTO) 76.4 % (40.0-70.0); PLATELET COUNT (AUTO) 195 K/uL (130-430); RED BLOOD CELL COUNT(AUTO) 3.65 MIL/uL (4.2-6.2); RED CELL DISTRIBUTION WIDTH 16.6 % (9.0-15.0); WHITE BLOOD COUNT (AUTO) 7.6 K/uL (4.8-10.8)
[2021-02-24 08:41] LABS: ANION GAP 16 (5-15); CALCIUM 8.5 mg/dL (8.4-11.0); CHLORIDE 113 mmol/L (98-107); CREATININE 5.45 mg/dL (0.55-1.30); GLUCOSE 253 mg/dL (70-99); POTASSIUM 4.4 mmol/L (3.5-5.1); SODIUM SERUM 143 mmol/L (136-145); UREA NITROGEN, BLOOD 81 mg/dL (8-21)
--- NOTE | 2021-02-24 09:13 | NUR ---
PICC LINE NURSE KAREN CAME AND PLACED MIDLINE ON THE LEFT UPPER ARM TWO LUMEN.
[2021-02-24] MEDS: MAGNESIUM CHLORIDE 64 MG TABLET.DR PO SCH ×2 (09:32→20:55)
[2021-02-24] MEDS: PANTOPRAZOLE SODIUM 40 MG TAB PO SCH ×2 (09:33→20:55)
[2021-02-24] MEDS: ALLOPURINOL 100 MG TABLET (ZYLOPRIM) PO SCH ×2 (09:33→20:55)
[2021-02-24] MEDS: SODIUM BICARBONATE 650 MG TABLET PO SCH ×2 (09:33→21:00)
[2021-02-24] MEDS: ASPIRIN 81 MG TABLET(ECOTRIN) PO SCH (09:33)
[2021-02-24] MEDS: BALSAM PERU/CASTOR OIL 60 GM OINT...G. TP SCH (09:34)
[2021-02-24] MEDS: NIFEdipine 30 MG TAB.ER.24 PO SCH (09:34)
[2021-02-24] MEDS: TACROLIMUS ANHYDROUS 1 MG CAPSULE (PROGRAF) PO SCH ×2 (09:35→20:55)
--- NOTE | 2021-02-24 09:40 | NUR ---
DUE MONA TURNER COMFORTABLE
[2021-02-24] MEDS: LEVOTHYROXINE SODIUM 0.05 MG TABLET PO SCH (11:53)
[2021-02-24] MEDS: mycophenolate mofetiL 250 MG CAPSULE PO SCH ×2 (11:53→20:55)
[2021-02-24] MEDS: D5NS 1,000 ML IV SCH ×2 (12:00→16:38)
--- NOTE | 2021-02-24 12:05 | NUR ---
BLOOD SUGAR 161 MG/DL. COVERAGE GIVEN.
[2021-02-24] MEDS ORDERED: SODIUM BICARBONATE 8.4% JECT 50 MEQ/50 ML SYRINGE IVP ONE (14:15)
--- NOTE | 2021-02-24 15:00 | NUR ---
DR VALDIVIA CAME AND ORDERED TO HAVE GLUCERNA FEEDING TO START AT 20CC/HR THE GOAL OF 40CC/HR. WATER FLUSHES OF 100CC EVERY 8 HOURS.
[2021-02-24 15:06] LABS: TACROLIMUS (FK506) 3.6 ng/mL (2.0-20.0)
--- NOTE | 2021-02-24 16:00 | NUR ---
BOLUS FEEDING OF GLUCERNA FEEDING VIA NGT 120CC EVERY FOUR HOURS AND FLUSHED WITH 100CC OF WATER EVERY 4 HOURS, BUT IF THE FEEDING PUMP IS AVAILABLE AND FOLLOW UP IN AM. GLUCERNA FEEDING WILL START AT 20CC/HR TILL THE GOAL OF 40CC/HR TOLERATES. WATER FLUSHES OF 100CC EVERY 8 HOURS, ORDERED.
--- NOTE | 2021-02-24 16:42 | NUR ---
LATEST BS 149 MG/DL. NO COVERAGE GIVEN
--- NOTE | 2021-02-24 18:21 | NUR ---
NEXT DUE OF GLUCERNA FEEDING BOLUS AT 2000 PM
[2021-02-25 01:43] VITALS: BP_SYST 104
[2021-02-25 06:24] LABS: ANION GAP 12 (5-15); CALCIUM 8.4 mg/dL (8.4-11.0); CHLORIDE 118 mmol/L (98-107); CREATININE 5.18 mg/dL (0.55-1.30); GLUCOSE 148 mg/dL (70-99); POTASSIUM 3.6 mmol/L (3.5-5.1); SODIUM SERUM 148 mmol/L (136-145); UREA NITROGEN, BLOOD 77 mg/dL (8-21)
[2021-02-25] MEDS: LEVOTHYROXINE SODIUM 0.05 MG TABLET PO SCH (06:30)
[2021-02-25 06:41] LABS: EOSINOPHILS # (AUTO) 0.2 K/uL (0.0-0.4); HEMATOCRIT 31.2 % (36-48); HEMOGLOBIN 9.8 g/dL (12.0-16.0); LYMPHOCYTES # (AUTO) 1.2 K/uL (1.0-5.5); LYMPHOCYTES % (AUTO) 15.3 % (20.5-51.5); MEAN CORPUSCULAR HEMOGLOBIN 29 pg (27-31); MEAN CORPUSCULAR HGB CONC 32 % (32-36); MEAN CORPUSCULAR VOLUME 92 fL (79.0-98.0); MONOCYTES # (AUTO) 0.7 K/uL (0.0-1.0); MONOCYTES % (AUTO) 8.7 % (1.7-9.3); PLATELET COUNT (AUTO) 207 K/uL (130-430); RED CELL DISTRIBUTION WIDTH 16.4 % (9.0-15.0); WHITE BLOOD COUNT (AUTO) 7.8 K/uL (4.8-10.8)
[2021-02-25 08:04] LABS: BASOPHILS % (AUTO) 0.4 % (0.0-2.0); NEUTROPHILS # (AUTO) 5.8 K/uL (1.8-7.7); NEUTROPHILS % (AUTO) 73.6 % (40.0-70.0)
[2021-02-25 08:18] VITALS: BP_SYST 136
[2021-02-25] MEDS: BALSAM PERU/CASTOR OIL 60 GM OINT...G. TP SCH (09:00)
--- NOTE | 2021-02-25 09:00 | NUR ---
PATIENT DROWSY, NO S/S OF DISTRESS, VITAL SIGN STABLE. AFEBRILE. IVF INFUSING ,MIDLINE AT LEFT UPPER ARM PATENT. NO SWELLING OR INFILTRATION NOTED. BED IS LOW AND LOCK POSITION, DAVID HEEL ELEVATED TO PREVENT FURTHER SKIN BREAKDOWN.
[2021-02-25] MEDS: SODIUM BICARBONATE 650 MG TABLET PO SCH ×2 (10:01→23:02)
[2021-02-25] MEDS: mycophenolate mofetiL 250 MG CAPSULE PO SCH ×2 (10:01→23:00)
[2021-02-25] MEDS: ALLOPURINOL 100 MG TABLET (ZYLOPRIM) PO SCH ×2 (10:01→23:02)
[2021-02-25] MEDS: MAGNESIUM CHLORIDE 64 MG TABLET.DR PO SCH ×2 (10:01→23:01)
[2021-02-25] MEDS: ASPIRIN 81 MG TABLET(ECOTRIN) PO SCH (10:01)
[2021-02-25] MEDS: PANTOPRAZOLE SODIUM 40 MG TAB PO SCH ×2 (10:01→23:02)
[2021-02-25] MEDS: NIFEdipine 30 MG TAB.ER.24 PO SCH (10:01)
[2021-02-25] MEDS: TACROLIMUS ANHYDROUS 1 MG CAPSULE (PROGRAF) PO SCH ×2 (10:01→23:01)
[2021-02-25 11:43] VITALS: BP_SYST 100
[2021-02-25 11:52] VITALS: BP_SYST 150
[2021-02-25] MEDS: D5NS 1,000 ML IV SCH (12:00)
[2021-02-25] MEDS: INSULIN REGULAR, HUMAN 100 UNITS/ML, 10 ML VIAL (humuLIN R) SUBCUT PRN ×2 (12:27→17:30)
--- NOTE | 2021-02-25 13:00 | NUR ---
PATIENT FAMILY AT THE BEDSIDE, UPDATED PATIENT CURRENT CONDITION AND POC.
--- NOTE | 2021-02-25 14:46 | NUR ---
SPEECH/SWALLOW JOO SPOKE WITH JORGE INFORMED OF EVALUATION
[2021-02-25] MEDS: D5W 1,000 ML IV SCH ×2 (15:15→18:00)
[2021-02-25 15:41] VITALS: BP_SYST 99
--- NOTE | 2021-02-25 16:00 | NUR ---
Nutrition F/U Admitting Diagnosis ARF Reviewed Pertinent Medical/Surgical Hx Medical Record Patient Family Member Medical History Comment: R kidney transplant, DM2, HTN, hypothyroidism, dyslipidemia, chronic atr fibr per physician notes Pt also found w/ severe protein malnutrition per physician notes SARS-CoV-2 Ag (Rapid) Negative 02/[address] rounded to pt's room. Pt's 2 grand-daughters present. Pt is receiving bolus feeds as there is not a continuous pump available at this time. Per EMR, RN is providing 120 cc Q4H w/ 100 cc flush H2O Q4H at this time; ST oswaldo valencia completed 02/23 at which time pt failed and NGT was inserted for nutrition support. Current Diet Order/Nutrition Support Glucerna 1.2 at 40 ml/hr (max), Free Water Flush: 100 ml Q8h via NGT x1 day Provides: 1152 kcal/day, 58 gm protein/day, and 1073 ml free water/day Meets: 82% of lower end of estimated caloric needs and 104% of upper end of estimated protein needs Patient/Significant Other Able To Verbalize Education Provided Not Indicated Pertinent Medications Reviewed Pertinent Labs Reviewed Height (Feet) 5 feet Height (Inches) 2.00 inches Weight (Pounds) 165 pounds -- stable since 02/21 Weight (Calculated Kilograms) 74.339009 kilograms Patient Weight 74.843 kg Body Mass Index 30.18 kg/m2 %IBW 150 [place]/Adjusted Body Weight 110#/50 kg; 124#/56 KG Weight Status Obese Estimated Energy Expenditure (kcals/day) 6499-5789 (25-30 kcal/kg Adj IBW d/t GERIAT maintenance) Estimated Protein Required (g/day) 45-56 (0.8-1 gm/kg Adj IBW d/t ARF, GERIAT status) Estimated Fluid Required (l/day) Per physician d/t ARF Problem/Etiology/Signs/Symptoms Altered nutrition-related labs related to endocrine and renal dysfunction as evidenced by abnormal BG, POC BG, Na, BUN, and CRE lab values. *ongoing Increased risk for malnutrition related to lack of appetite as evidenced by negligible PO intakes records. *ongoing Expected Outcomes/Goals - Monitor appetite and PO intakes w/ goal of pt meeting at least 50% of estimated nutritional needs, labs trending WNL, normal GI function, and skin integrity/wt maintenance Dietitian Recommendations * Continue current TF prescription Follow Up High Risk: F/U in 2-3 days
--- NOTE | 2021-02-25 16:01 | NUR ---
Dietitian Recommendations * Continue current TF prescription LP, RD Please refer to Nutrition F/U for details.
--- NOTE | 2021-02-25 17:07 | NUR ---
ST EVALUATION COMPLETED. ST TX NOT INDICATED AT THIS TIME. RECOMMEND PO DIET OF PUREE/NECTAR THICK LIQUIDS, SMALL PORTIONS, WITH 1:1 FEEDER AND FULL ASPIRATION PRECAUTIONS.
--- NOTE | 2021-02-25 18:08 | NUR ---
ALL NEEDS METS. VITAL SIGN STABLE, AFEBRILE. NO S/S OF DISTRESS.
--- NOTE | 2021-02-25 19:05 | NUR ---
REPORT RECEIVED FROM AM SHIFT NURSE. PATIENT RESTING QUIETLY IN BED, CHEST RISE AND FALL SYMMETRICAL. PATIENT SKIN INTACT. PATIENT NOT IN DISTRESS AND DOES NOT DISPLAY SIGNS OR SYMPTOMS OF DISCOMFORT.
[2021-02-25 20:00] VITALS: BP_SYST 100
--- NOTE | 2021-02-25 20:00 | NUR ---
PATIENT RESTING QUIETLY IN BED, CHEST RISE AND FALL SYMMETRICAL. PATIENT SKIN INTACT. PATIENT NOT IN DISTRESS AND DOES NOT DISPLAY SIGNS OR SYMPTOMS OF DISCOMFORT.
--- NOTE | 2021-02-26 | NUR ---
PATIENT RESTING QUIETLY IN BED, CHEST RISE AND FALL SYMMETRICAL. PATIENT SKIN INTACT. PATIENT NOT IN DISTRESS AND DOES NOT DISPLAY SIGNS OR SYMPTOMS OF DISCOMFORT.
[2021-02-26] MEDS: INSULIN REGULAR, HUMAN 100 UNITS/ML, 10 ML VIAL (humuLIN R) SUBCUT PRN ×4 (00:43→17:20)
[2021-02-26 00:49] VITALS: BP_SYST 103
--- NOTE | 2021-02-26 04:00 | NUR ---
PATIENT RESTING QUIETLY IN BED, CHEST RISE AND FALL SYMMETRICAL. PATIENT SKIN INTACT. PATIENT NOT IN DISTRESS AND DOES NOT DISPLAY SIGNS OR SYMPTOMS OF DISCOMFORT.
[2021-02-26] MEDS: LEVOTHYROXINE SODIUM 0.05 MG TABLET PO SCH (07:00)
--- NOTE | 2021-02-26 07:28 | NUR ---
REPORT GIVEN TO AM SHIFT NURSE, PATIENT RESTING QUIETLY IN BED, CHEST RISE AND FALL SYMMETRICAL. PATIENT SKIN INTACT. PATIENT SATURATION ON ROOM AIR IS 100%. PATIENT NOT IN DISTRESS AND DOES NOT DISPLAY SIGNS OR SYMPTOMS OF DISCOMFORT. IV SITE INTACT AND PATENT, NO SIGNS OR SYMPTOMS OF INFILTRATION, IV INFUSING D5 AT 40 ML/HR. AM SHIFT NURSE VERBALIZED UNDERSTANDING OF REPORT, NO FURTHER QUESTIONS.
[2021-02-26 07:47] LABS: BASOPHILS % (AUTO) 0.6 % (0.0-2.0); EOSINOPHILS # (AUTO) 0.1 K/uL (0.0-0.4); EOSINOPHILS % (AUTO) 2.1 % (0.0-4.0); HEMATOCRIT 32.3 % (36-48); HEMOGLOBIN 10.1 g/dL (12.0-16.0); LYMPHOCYTES # (AUTO) 1.1 K/uL (1.0-5.5); MEAN CORPUSCULAR HEMOGLOBIN 29 pg (27-31); MEAN CORPUSCULAR HGB CONC 31 % (32-36); MEAN CORPUSCULAR VOLUME 94 fL (79.0-98.0); MONOCYTES # (AUTO) 0.4 K/uL (0.0-1.0); MONOCYTES % (AUTO) 7.8 % (1.7-9.3); NEUTROPHILS # (AUTO) 3.7 K/uL (1.8-7.7); NEUTROPHILS % (AUTO) 69.5 % (40.0-70.0); PLATELET COUNT (AUTO) 194 K/uL (130-430); RED BLOOD CELL COUNT(AUTO) 3.44 MIL/uL (4.2-6.2); RED CELL DISTRIBUTION WIDTH 17.4 % (9.0-15.0)
[2021-02-26 08:30] VITALS: BP_SYST 154
[2021-02-26 08:34] VITALS: BP_SYST 154
[2021-02-26 09:30] LABS: ANION GAP 12 (5-15); CALCIUM 8.1 mg/dL (8.4-11.0); CHLORIDE 112 mmol/L (98-107); CREATININE 4.97 mg/dL (0.55-1.30); POTASSIUM 4.5 mmol/L (3.5-5.1); SODIUM SERUM 140 mmol/L (136-145); UREA NITROGEN, BLOOD 73 mg/dL (8-21)
[2021-02-26 09:34] LABS: GLUCOSE 483 mg/dL (70-99)
--- NOTE | 2021-02-26 09:36 | NUR ---
critical informed Rn of critical lab glucose 483
[2021-02-26] MEDS: ALLOPURINOL 100 MG TABLET (ZYLOPRIM) PO SCH ×2 (09:39→21:54)
[2021-02-26] MEDS: SODIUM BICARBONATE 650 MG TABLET PO SCH ×2 (09:39→21:54)
[2021-02-26] MEDS: ASPIRIN 81 MG TABLET(ECOTRIN) PO SCH (09:39)
[2021-02-26] MEDS: PANTOPRAZOLE SODIUM 40 MG TAB PO SCH ×2 (09:40→21:53)
[2021-02-26] MEDS: BALSAM PERU/CASTOR OIL 60 GM OINT...G. TP SCH (09:47)
[2021-02-26] MEDS: MAGNESIUM CHLORIDE 64 MG TABLET.DR PO SCH ×2 (09:47→21:52)
[2021-02-26] MEDS: TACROLIMUS ANHYDROUS 1 MG CAPSULE (PROGRAF) PO SCH ×2 (09:48→21:53)
[2021-02-26] MEDS: NIFEdipine 30 MG TAB.ER.24 PO SCH (09:48)
[2021-02-26] MEDS: mycophenolate mofetiL 250 MG CAPSULE PO SCH ×2 (09:48→21:53)
[2021-02-26 10:44] LABS: WHITE BLOOD COUNT (AUTO) 5.3 K/uL (4.8-10.8)
[2021-02-26 11:21] VITALS: BP_SYST 149
[2021-02-26 15:09] VITALS: BP_SYST 100
--- NOTE | 2021-02-26 17:20 | NUR ---
CRITICAL VALUE PTS BLOOD SUGAR 424, PT GIVEN 12 UNITS OF REGULAR INSULIN. CALLED DR. SPRINGER AND LEFT A VOICEMAIL, NO CALL BACK
--- NOTE | 2021-02-26 19:20 | NUR ---
CLOSING NOTES PT IN BED SLEEPING, SAFETY AND FALL PRECAUTIONS IN PLACE. RESTRAINT PLACEMENT CHECKED, EXTREMITIES HAVE BLOOD FLOW. PT IS IN NO APPARENT DISTRESS. REPORT GIVEN TO MYLES RATLIFF
[2021-02-26 20:00] VITALS: BP_SYST 115
--- NOTE | 2021-02-26 20:00 | NUR ---
Received patient from AM shift nurse. Patient is sleeping unable to assess orientation with no s/s of distress noted at this time. Chest rise is even and unlabored on RA. Normal hear sounds present. NGT noted and patent. Active bowel sounds x4, NGT sounds auscultation, denies pain with palpation. Call light is within reach, bed is locked in the lowest position with bed rails up. Fall protocol in place will continue to monitor.
[2021-02-26] MEDS ORDERED: 0.45% NS 500 ML IV ONE (20:45)
[2021-02-26] MEDS: INSULIN GLARGINE 100 UNITS/ML 10 ML VIAL SUBCUT SCH (22:07)
[2021-02-27 01:00] VITALS: BP_SYST 121
[2021-02-27] MEDS: INSULIN REGULAR, HUMAN 100 UNITS/ML, 10 ML VIAL (humuLIN R) SUBCUT PRN ×4 (02:13→18:10)
[2021-02-27] MEDS: LEVOTHYROXINE SODIUM 0.05 MG TABLET PO SCH (06:01)
[2021-02-27 06:47] LABS: BASOPHILS % (AUTO) 0.3 % (0.0-2.0); EOSINOPHILS # (AUTO) 0.1 K/uL (0.0-0.4); EOSINOPHILS % (AUTO) 2.1 % (0.0-4.0); HEMATOCRIT 28.1 % (36-48); HEMOGLOBIN 8.9 g/dL (12.0-16.0); LYMPHOCYTES # (AUTO) 1.2 K/uL (1.0-5.5); MEAN CORPUSCULAR HEMOGLOBIN 29 pg (27-31); MEAN CORPUSCULAR HGB CONC 32 % (32-36); MEAN CORPUSCULAR VOLUME 92 fL (79.0-98.0); MONOCYTES # (AUTO) 0.4 K/uL (0.0-1.0); MONOCYTES % (AUTO) 6.6 % (1.7-9.3); NEUTROPHILS # (AUTO) 4.4 K/uL (1.8-7.7); PLATELET COUNT (AUTO) 223 K/uL (130-430); RED BLOOD CELL COUNT(AUTO) 3.06 MIL/uL (4.2-6.2); RED CELL DISTRIBUTION WIDTH 17.1 % (9.0-15.0); WHITE BLOOD COUNT (AUTO) 6.2 K/uL (4.8-10.8)
--- NOTE | 2021-02-27 06:48 | NUR ---
CLOSING NOTE: Patient is currently resting no s/s of distress is noted. Patient is AA&Ox3 and is able to state needs but is occitan speaking only. Sacral dressing change was completed with mckenna care. All current needs have been met. Will differ further care to AM shift for continuity of care.
[2021-02-27 07:16] LABS: ANION GAP 13 (5-15); CHLORIDE 110 mmol/L (98-107); CREATININE 4.43 mg/dL (0.55-1.30); GLUCOSE 371 mg/dL (70-99); POTASSIUM 3.9 mmol/L (3.5-5.1); SODIUM SERUM 138 mmol/L (136-145); UREA NITROGEN, BLOOD 74 mg/dL (8-21)
[2021-02-27 08:00] VITALS: BP_SYST 134
[2021-02-27] MEDS: ASPIRIN 81 MG TABLET(ECOTRIN) PO SCH (10:27)
[2021-02-27] MEDS: SODIUM BICARBONATE 650 MG TABLET PO SCH ×2 (10:27→20:33)
[2021-02-27] MEDS: mycophenolate mofetiL 250 MG CAPSULE PO SCH ×2 (10:27→20:32)
[2021-02-27] MEDS: TACROLIMUS ANHYDROUS 1 MG CAPSULE (PROGRAF) PO SCH ×2 (10:27→20:32)
[2021-02-27] MEDS: NIFEdipine 30 MG TAB.ER.24 PO SCH (10:27)
[2021-02-27] MEDS: MAGNESIUM CHLORIDE 64 MG TABLET.DR PO SCH ×2 (10:27→20:32)
[2021-02-27] MEDS: ALLOPURINOL 100 MG TABLET (ZYLOPRIM) PO SCH ×2 (10:27→20:33)
[2021-02-27] MEDS: PANTOPRAZOLE SODIUM 40 MG TAB PO SCH ×2 (10:27→20:33)
[2021-02-27] MEDS: BALSAM PERU/CASTOR OIL 60 GM OINT...G. TP SCH (10:30)
[2021-02-27 11:51] VITALS: BP_SYST 144
[2021-02-27 15:29] VITALS: BP_SYST 132
--- NOTE | 2021-02-27 19:00 | NUR ---
NURSING NOTES [id number] 0720AM: PATIENT IS RESTING IN BED QUIETLY. NO ADDITIONAL DISTRESS NOTED. BED IN LOW AND LOCK POSITION. BED ALARM ON. CALL LIGHT LIGHT WITHIN REACH. BILAT SOFT WRIST RESTRAINTS ON. RIGHT NARE NGT PLACMENT CHECK. STABLE CONDITION AT THIS TIME. WILL CONT TO MONITOR. 0800AM: EXPLAINED POC TO PATIENT BUT NOTED TO HAVE EPISODES OF FORGETFULNESS AND CONFUSION. STABLE AT THIS TIME. WILL CONT TO MONITOR. 1000AM: R NGT PLACEMENT CHECK RESIDUAL CHECK- 0 OUTPUT. GLUCERNA 1.2 BOLUS 200ML. HOB 30<. FLUSHED WITH 30 ML OF WATER. TOLERATED WELL. WILL CONT TO MONITOR. 1030AM: DRESSING CHANGED TO COCCYX AND R HEEL. CLEANSE WITH NS, APPLIED VENELEX, AND COVER WITH FOAM. 1145AM: PATIENT'S FAMILY AT THE BEDSIDE TRYING TO FEED THE PATIENT. NO ADDITIONAL DISTRESS NOTED. 1300PM: PATIENT IS RESTING IN BED, ASLEEP. NO ADDITIONAL DISTRESS NOTED. FAMILY LEFT THE UNIT. 1400:R NGT PLACEMENT CHECK. RESIDUAL CHECK- 0 OUTPUT. GLUCERNA 1.2 BOLUS 200ML. HOB 30<. FLUSHED WITH 100 ML OF WATER. TOLERATED WELL. WILL CONT TO MONITOR. 1600: PATIENT IS RESTING IN BED ASLEEP. NO ADDITIONAL DISTRESS NOTED. WILL CONT MONITOR. 1652: RENEWED BILAT SOFT WRIST RESTRAINTS BY DR SPRINGER DUE TO PULLING OUT TUBINGS AND LINES. 1800: R NGT PLACEMENT CHECK. RESIDUAL CHECK- 0 OUTPUT. GLUCERNA 1.2 BOLUS 200ML. HOB 30<. FLUSHED WITH 30 ML OF WATER. TOLERATED WELL. WILL CONT TO MONITOR. 1830: PATIENT REFUSED DINNER TRAY. 1845: PATIENT IS RESTING IN BED ASLEEP. NO ADDITIONAL DISTRESS NOTED. STABLE CONDITION AT THIS TIME. B SOFT WRIST RESTRAINTS INTACT AND PATENT. WILL CONT TO MONITOR.
--- NOTE | 2021-02-27 19:30 | NUR ---
Opening note Received report from day shift. Pt is lying in bed sleeping. No s/s of respiratory distress. Breathing even and unlabored. NGT in place. Soft wrist bilateral restraints in place. CAT midline is intact and patent. Fall and safety precautions in place with bed in lowest position, bed alarm on, and call light within reach
[2021-02-27 20:00] VITALS: BP_SYST 134
[2021-02-27] MEDS: INSULIN GLARGINE 100 UNITS/ML 10 ML VIAL SUBCUT SCH (20:59)
[2021-02-28] MEDS: INSULIN REGULAR, HUMAN 100 UNITS/ML, 10 ML VIAL (humuLIN R) SUBCUT PRN ×2 (00:02→12:08)
--- NOTE | 2021-02-28 00:10 | NUR ---
Rounds Pt sleeping. No s/s of acute distress. Fall and safety checks in place
[2021-02-28 01:00] VITALS: BP_SYST 143
[2021-02-28] MEDS: LEVOTHYROXINE SODIUM 0.05 MG TABLET PO SCH (06:10)
--- NOTE | 2021-02-28 06:50 | NUR ---
Closing note Pt is lying in bed sleeping. No s/s of respiratory distress. Breathing even and unlabored. NGT in place. Soft wrist bilateral restraints in place. Castaneda catheter is intact and draining by gravity. CAT midline is intact and patent. Fall and safety precautions in place with bed in lowest position, bed alarm on, and call light within reach
--- NOTE | 2021-02-28 07:42 | NUR ---
OPENING NOTE PT awake and alert to name and date of . No shortness of breath on room air, no signs of pain or discomfort. NG tube in place on the right nares. No drainage. On bilateral wrist restraints, released for 10 minutes and then reapplied because PT is attempting to pull NG tube. Castaneda catheter in place, draining clear yellow urine. PICC on left upper arm intact. Repositioned comfortable in bed. Safety checks made and call light within reach.
[2021-02-28 08:03] VITALS: BP_SYST 131
[2021-02-28] MEDS: ALLOPURINOL 100 MG TABLET (ZYLOPRIM) PO SCH ×2 (08:30→22:11)
[2021-02-28] MEDS: MAGNESIUM CHLORIDE 64 MG TABLET.DR PO SCH ×2 (08:30→22:12)
[2021-02-28] MEDS: NIFEdipine 30 MG TAB.ER.24 PO SCH (08:30)
[2021-02-28] MEDS: BALSAM PERU/CASTOR OIL 60 GM OINT...G. TP SCH (08:30)
[2021-02-28] MEDS: ASPIRIN 81 MG TABLET(ECOTRIN) PO SCH (08:30)
[2021-02-28] MEDS: PANTOPRAZOLE SODIUM 40 MG TAB PO SCH ×2 (08:30→22:11)
[2021-02-28] MEDS: mycophenolate mofetiL 250 MG CAPSULE PO SCH ×2 (08:30→22:11)
[2021-02-28] MEDS: TACROLIMUS ANHYDROUS 1 MG CAPSULE (PROGRAF) PO SCH ×2 (08:30→22:11)
[2021-02-28] MEDS: SODIUM BICARBONATE 650 MG TABLET PO SCH (08:30)
--- NOTE | 2021-02-28 08:30 | NUR ---
MEDICATION ADMINISTRATION Scanned and verified all medications but computer was unable to save. PT tolerated all PO medications well.
[2021-02-28 11:25] VITALS: BP_SYST 136
[2021-02-28 15:44] VITALS: BP_SYST 131
--- NOTE | 2021-02-28 16:00 | NUR ---
D/C RESTRAINTS Wound care completed and NG tube removed. Removed restraints for now, will closely monitor PT.
--- NOTE | 2021-02-28 18:59 | NUR ---
CLOSING NOTE PT asleep, oriented only to self. No signs of respiratory distress or pain. PT has been tolerating her medications PO well. PICC line on left upper arm is clean dry and intact. Castaneda catheter in place, urine output is red and clear. Safety checks were made, call light left within reach.
[2021-02-28] MEDS ORDERED: SODIUM BICARBONATE 650 MG TABLET PO ONE (20:30)
[2021-02-28] MEDS: INSULIN GLARGINE 100 UNITS/ML 10 ML VIAL SUBCUT SCH (22:35)
[2021-03-01] VITALS: BP_SYST 121
[2021-03-01] MEDS: INSULIN REGULAR, HUMAN 100 UNITS/ML, 10 ML VIAL (humuLIN R) SUBCUT PRN ×3 (01:21→11:31)
[2021-03-01] MEDS: LEVOTHYROXINE SODIUM 0.05 MG TABLET PO SCH (06:16)
[2021-03-01 06:37] LABS: BASOPHILS # (AUTO) 0.1 K/uL (0.0-0.2); EOSINOPHILS # (AUTO) 0.2 K/uL (0.0-0.4); EOSINOPHILS % (AUTO) 4.8 % (0.0-4.0); HEMOGLOBIN 8.7 g/dL (12.0-16.0); LYMPHOCYTES # (AUTO) 1.2 K/uL (1.0-5.5); LYMPHOCYTES % (AUTO) 23.7 % (20.5-51.5); MEAN CORPUSCULAR HEMOGLOBIN 29 pg (27-31); MEAN CORPUSCULAR HGB CONC 32 % (32-36); MEAN CORPUSCULAR VOLUME 91 fL (79.0-98.0); MONOCYTES # (AUTO) 0.4 K/uL (0.0-1.0); MONOCYTES % (AUTO) 7.1 % (1.7-9.3); NEUTROPHILS # (AUTO) 3.2 K/uL (1.8-7.7); NEUTROPHILS % (AUTO) 63.4 % (40.0-70.0); PLATELET COUNT (AUTO) 262 K/uL (130-430); RED BLOOD CELL COUNT(AUTO) 2.96 MIL/uL (4.2-6.2); RED CELL DISTRIBUTION WIDTH 16.9 % (9.0-15.0)
[2021-03-01 06:51] LABS: ANION GAP 9 (5-15); CALCIUM 8.5 mg/dL (8.4-11.0); CHLORIDE 106 mmol/L (98-107); GLUCOSE 246 mg/dL (70-99); POTASSIUM 4.8 mmol/L (3.5-5.1); SODIUM SERUM 135 mmol/L (136-145); UREA NITROGEN, BLOOD 80 mg/dL (8-21)
[2021-03-01 08:00] VITALS: BP_SYST 98
--- NOTE | 2021-03-01 08:00 | NUR ---
Initial notes Awake, alert, speak british only. Denies any pain, No distress noted bed alarm on. Will monitor.
[2021-03-01] MEDS: SODIUM BICARBONATE 650 MG TABLET PO SCH ×3 (08:30→21:02)
[2021-03-01] MEDS: ASPIRIN 81 MG TABLET(ECOTRIN) PO SCH (08:30)
[2021-03-01] MEDS: ALLOPURINOL 100 MG TABLET (ZYLOPRIM) PO SCH ×2 (08:31→21:03)
[2021-03-01] MEDS: NIFEdipine 30 MG TAB.ER.24 PO SCH (08:31)
[2021-03-01] MEDS: PANTOPRAZOLE SODIUM 40 MG TAB PO SCH ×2 (08:31→21:02)
[2021-03-01] MEDS: MAGNESIUM CHLORIDE 64 MG TABLET.DR PO SCH ×2 (08:32→21:03)
[2021-03-01] MEDS: TACROLIMUS ANHYDROUS 1 MG CAPSULE (PROGRAF) PO SCH ×2 (08:33→21:03)
[2021-03-01] MEDS: BALSAM PERU/CASTOR OIL 60 GM OINT...G. TP SCH (08:34)
[2021-03-01] MEDS: mycophenolate mofetiL 250 MG CAPSULE PO SCH ×2 (08:34→21:03)
--- NOTE | 2021-03-01 10:00 | NUR ---
Notes Repositioned, denies any pain
--- NOTE | 2021-03-01 11:30 | NUR ---
Notes- family at bedside and update about plan of care.
[2021-03-01 11:32] VITALS: BP_SYST 98
[2021-03-01 13:24] VITALS: BP_SYST 111
[2021-03-01 16:20] VITALS: BP_SYST 118
[2021-03-01 21:00] VITALS: BP_SYST 149
[2021-03-01] MEDS: INSULIN GLARGINE 100 UNITS/ML 10 ML VIAL SUBCUT SCH (21:21)
[2021-03-02 01:00] VITALS: BP_SYST 158
[2021-03-02] MEDS: LEVOTHYROXINE SODIUM 0.05 MG TABLET PO SCH (06:21)
[2021-03-02] MEDS: INSULIN REGULAR, HUMAN 100 UNITS/ML, 10 ML VIAL (humuLIN R) SUBCUT PRN ×3 (06:29→17:25)
--- NOTE | 2021-03-02 08:00 | NUR ---
MORNING ROUNDS: PATIENT AWAKE DURING ROUNDS. GREEK SPEAKING LADY. LEFT UPPER ARM MIDLINE,DRESSING CLEAN AND DRY. OLD SHUNT AT RIGHT UPPER ARM.HERRMANN DRAINING TO YELLOW URINE.CALL LIGHT WITH IN REACH. BED LOCKED AT LOWEST POSITION. NOT IN ANY DISTRESS.
[2021-03-02 08:58] VITALS: BP_SYST 101
[2021-03-02] MEDS: NIFEdipine 30 MG TAB.ER.24 PO SCH (09:00)
[2021-03-02] MEDS: ALLOPURINOL 100 MG TABLET (ZYLOPRIM) PO SCH ×2 (09:06→21:02)
[2021-03-02] MEDS: SODIUM BICARBONATE 650 MG TABLET PO SCH ×3 (09:06→21:02)
[2021-03-02] MEDS: ASPIRIN 81 MG TABLET(ECOTRIN) PO SCH (09:06)
[2021-03-02] MEDS: mycophenolate mofetiL 250 MG CAPSULE PO SCH ×2 (09:07→21:02)
[2021-03-02] MEDS: TACROLIMUS ANHYDROUS 1 MG CAPSULE (PROGRAF) PO SCH ×2 (09:07→21:02)
[2021-03-02] MEDS: PANTOPRAZOLE SODIUM 40 MG TAB PO SCH ×2 (09:07→21:02)
[2021-03-02] MEDS: MAGNESIUM CHLORIDE 64 MG TABLET.DR PO SCH ×2 (09:07→21:02)
[2021-03-02] MEDS: BALSAM PERU/CASTOR OIL 60 GM OINT...G. TP SCH (09:09)
[2021-03-02 11:40] VITALS: BP_SYST 100
[2021-03-02 15:40] VITALS: BP_SYST 110
--- NOTE | 2021-03-02 17:45 | NUR ---
FAMILY VISIT: FAMILY AT THE BEDSIDE. Addendum: 03/02/21 at 1835 by Ana Laura Bashir RN PLAN OF CARE UPDATED.
--- NOTE | 2021-03-02 18:33 | NUR ---
EVENING ROUNDS: PATIENT STILL HAVING DINNER. CALL LIGHT WITH IN REACH. BED LOCKED AT LOWEST POSITION. NO ACUTE DISTRESS.
[2021-03-02 19:00] VITALS: BP_SYST 136
[2021-03-02 20:00] VITALS: BP_SYST 136
[2021-03-02] MEDS: INSULIN GLARGINE 100 UNITS/ML 10 ML VIAL SUBCUT SCH (21:07)
[2021-03-03] VITALS: BP_SYST 132
[2021-03-03] MEDS: INSULIN REGULAR, HUMAN 100 UNITS/ML, 10 ML VIAL (humuLIN R) SUBCUT PRN ×4 (01:37→23:54)
[2021-03-03] MEDS: LEVOTHYROXINE SODIUM 0.05 MG TABLET PO SCH (05:24)
[2021-03-03 08:00] VITALS: BP_SYST 120
[2021-03-03] MEDS: SODIUM BICARBONATE 650 MG TABLET PO SCH ×3 (09:00→20:43)
[2021-03-03] MEDS: MAGNESIUM CHLORIDE 64 MG TABLET.DR PO SCH ×2 (09:00→20:42)
[2021-03-03] MEDS: PANTOPRAZOLE SODIUM 40 MG TAB PO SCH ×2 (09:00→20:42)
[2021-03-03] MEDS: TACROLIMUS ANHYDROUS 1 MG CAPSULE (PROGRAF) PO SCH ×2 (09:00→20:41)
[2021-03-03] MEDS: ALLOPURINOL 100 MG TABLET (ZYLOPRIM) PO SCH ×2 (09:00→20:43)
[2021-03-03] MEDS: mycophenolate mofetiL 250 MG CAPSULE PO SCH ×2 (09:00→20:41)
[2021-03-03] MEDS: ASPIRIN 81 MG TABLET(ECOTRIN) PO SCH (09:00)
[2021-03-03] MEDS: NIFEdipine 30 MG TAB.ER.24 PO SCH (09:00)
[2021-03-03] MEDS: BALSAM PERU/CASTOR OIL 60 GM OINT...G. TP SCH (09:00)
[2021-03-03 12:00] VITALS: BP_SYST 120
[2021-03-03 16:00] VITALS: BP_SYST 107
[2021-03-03 19:00] VITALS: BP_SYST 134
--- NOTE | 2021-03-03 19:15 | NUR ---
change of shift.pt.presents quiescent affect calm somnolent.pt.presents picc line location:lt.bicept intact iv fluids:ns-flush infusing. pt.presents lopez cath intact patent urine content present.general status stable.respiratory status stable unlabored@room air.call light/telephone w/in access of the pt.language barrier extant.djiboutian pt's primary language.
[2021-03-03 20:00] VITALS: BP_SYST 134
--- NOTE | 2021-03-03 20:00 | NUR ---
pt.assessed.v/s assessed values wnl.o2-sat%=98%.no c/o pain,nausea;vietnamese.picc line intact iv fluids:ns-flush infusing. lopez cath intact patent urine content present.pt.assessed for cleanliness pt.repositioned.call light/telephone placed w/in access of the pt.
[2021-03-03] MEDS: INSULIN GLARGINE 100 UNITS/ML 10 ML VIAL SUBCUT SCH (20:47)
--- NOTE | 2021-03-03 21:00 | NUR ---
2100p medications administered.pt.capable to ingest the po medications w precautions.medications required crushed mixture apple sauce.no c/o pain,nausea.call light/telephone placed w/in access of the pt.
--- NOTE | 2021-03-03 22:00 | NUR ---
pt.assessed.pt.presents quiescent affect calm somnolent.per flacc pain mgx pt.absent facial;grimaces/body posturing.picc line intact iv fluids infusing.lopez cath intact urine content present.pt.assessed for cleanliness.pt.repositioned.call light/telephone placed w/in access of the pt.
--- NOTE | 2021-03-04 | NUR ---
pt.assessed./vs assessed value wnl.no c/o pain,nausea.iv access intact iv fluids infusing.lopez cath intact urine content present. pt.assessed for cleanliness pt.repositioned.call light/telephone placed w/in access of the pt. Addendum: 03/04/21 at 0113 by Thompson Lewis RN blood glucose assessed value;275mg/dl.insulin:regular 6-u administered.
[2021-03-04 00:55] VITALS: BP_SYST 109
--- NOTE | 2021-03-04 02:00 | NUR ---
pt.assessed.pt.present quiescent affect calm somnolent.per flacc pain mgx pt.absent facial grimaces/body posturing. picc line intact iv fluids infusing.pt.assessed for cleanliness pt.repositioned.call light/telephone placed w/in access of the pt.
--- NOTE | 2021-03-04 04:00 | NUR ---
pt.assessed.pt.presents quiescent affect calm somnolent.per flacc pain mgx pt.absent facial grimaces/body posturing.picc line intact iv fluids infusing.lopez cath intact patent urine content present.pt.assessed for cleanliness.pt.repositioned.call light/ telephone placed w/in access of the pt.
[2021-03-04] MEDS: LEVOTHYROXINE SODIUM 0.05 MG TABLET PO SCH (05:48)
--- NOTE | 2021-03-04 06:00 | NUR ---
pt.assessed.blood glucose assessed [id number]/dl.pt.assessed for cleanliness pt.cleaned/repositioned.no c/o pain,nausea. picc line intact iv fluids infusing.lopez cath intact patent urine content present.pt.repositioned.,call light/telephone placed w/in access of the pt.
[2021-03-04 06:29] LABS: BASOPHILS % (AUTO) 1.2 % (0.0-2.0); EOSINOPHILS # (AUTO) 0.3 K/uL (0.0-0.4); EOSINOPHILS % (AUTO) 7.2 % (0.0-4.0); HEMOGLOBIN 8.2 g/dL (12.0-16.0); LYMPHOCYTES # (AUTO) 1.2 K/uL (1.0-5.5); LYMPHOCYTES % (AUTO) 34.6 % (20.5-51.5); MEAN CORPUSCULAR HEMOGLOBIN 30 pg (27-31); MEAN CORPUSCULAR HGB CONC 33 % (32-36); MEAN CORPUSCULAR VOLUME 90 fL (79.0-98.0); MONOCYTES # (AUTO) 0.3 K/uL (0.0-1.0); MONOCYTES % (AUTO) 8.8 % (1.7-9.3); NEUTROPHILS # (AUTO) 1.7 K/uL (1.8-7.7); NEUTROPHILS % (AUTO) 48.2 % (40.0-70.0); PLATELET COUNT (AUTO) 302 K/uL (130-430); RED BLOOD CELL COUNT(AUTO) 2.78 MIL/uL (4.2-6.2); RED CELL DISTRIBUTION WIDTH 16.7 % (9.0-15.0); WHITE BLOOD COUNT (AUTO) 3.5 K/uL (4.8-10.8)
--- NOTE | 2021-03-04 07:04 | NUR ---
PHYSICAL THERAPY CO-SIGN The Physical Therapy Progress Notes documented by Dumpman have been reviewed. Reviewed/Co-Signed by: Jorge L Alex Documentation Done by: CHRISTIAN HOLLAND PTA Addendum: 03/04/21 at 0705 by Jorge L Alex PT Amended: Links added.
[2021-03-04 07:45] VITALS: BP_SYST 139
[2021-03-04 08:00] VITALS: BP_SYST 139
[2021-03-04 08:28] LABS: ANION GAP 10 (5-15); CALCIUM 9.1 mg/dL (8.4-11.0); CHLORIDE 106 mmol/L (98-107); CREATININE 3.08 mg/dL (0.55-1.30); GLUCOSE 121 mg/dL (70-99); POTASSIUM 4.8 mmol/L (3.5-5.1); SODIUM SERUM 134 mmol/L (136-145); UREA NITROGEN, BLOOD 82 mg/dL (8-21)
[2021-03-04] MEDS: ALLOPURINOL 100 MG TABLET (ZYLOPRIM) PO SCH ×2 (09:34→22:16)
[2021-03-04] MEDS: ASPIRIN 81 MG TABLET(ECOTRIN) PO SCH (09:34)
[2021-03-04] MEDS: SODIUM BICARBONATE 650 MG TABLET PO SCH ×3 (09:34→22:19)
[2021-03-04] MEDS: NIFEdipine 30 MG TAB.ER.24 PO SCH (09:34)
[2021-03-04] MEDS: PANTOPRAZOLE SODIUM 40 MG TAB PO SCH ×2 (09:34→22:16)
[2021-03-04] MEDS: MAGNESIUM CHLORIDE 64 MG TABLET.DR PO SCH ×2 (09:34→22:16)
[2021-03-04] MEDS: TACROLIMUS ANHYDROUS 1 MG CAPSULE (PROGRAF) PO SCH ×2 (09:35→22:16)
[2021-03-04] MEDS: mycophenolate mofetiL 250 MG CAPSULE PO SCH ×2 (09:35→22:16)
[2021-03-04] MEDS: BALSAM PERU/CASTOR OIL 60 GM OINT...G. TP SCH (09:36)
[2021-03-04 11:30] VITALS: BP_SYST 110
[2021-03-04] MEDS: ACETAMINOPHEN 325 MG TABLET PO PRN (11:35)
[2021-03-04] MEDS: INSULIN REGULAR, HUMAN 100 UNITS/ML, 10 ML VIAL (humuLIN R) SUBCUT PRN ×4 (12:07→23:51)
--- NOTE | 2021-03-04 13:23 | NUR ---
Nutrition F/U Admitting Diagnosis ARF Reviewed Pertinent Medical/Surgical Hx Medical Record Patient Family Member Medical History Comment: R kidney transplant, DM2, HTN, hypothyroidism, dyslipidemia, chronic atr fibr per physician notes Pt also found w/ severe protein malnutrition per physician notes 03/04 MD notes: Sepsis 2/2 Bacteremia, Accelerated HTN. SARS-CoV-2 Ag (Rapid) Negative 02/17 Subjective Information: RD bedside visit was deferred d/t high pt load. Per EMR review, pts kidney function remains stable. Abdomen is firm and distended, BM 03/04 x1. Pt failed swallow eval on 02/23, and NGT has been inserted for nutrition support. A re-evaluation was done by ST on 02/25 and pt passed and [address] rec to start pt on pureed diet NTL w/ 1:1 assist during meals, full aspiration precaution. medicare insurance specialist saw pt on 02/20 and noted pt w/ 1. Right Posterior Heel: Unstageable pressure ulcer, present on admission. Fortunato scale 12, 2+ pitting edema to bilateral arm and pitting edema to bilateral leg per scientific aide. PO records indicate pt is meeting <50% of estimated needs, RD rec to add diet modifications for glycemic control and wound healing. Current Diet Order/Nutrition Support: Pureed diet x 6 days Pertinent Medications: Insulin, Zofran, Synthroid Pertinent Labs : 03/04 Na 134L, K 4.8, BG 121H, BUN 82H, Cre 3.08H Height (Feet) 5 feet Height (Inches) 2.00 inches Weight (Pounds) 165 pounds 02/21 NEW WEIGHT: 03/03 192#/ 87kg --+27#weight gain in 10 days (?) Body Mass Index 30.18 kg/m2 [place]/Adjusted Body Weight 110#/50 kg; 124#/56 KG Weight Status Obese Estimated Energy Expenditure (kcals/day) 5027-3416 (25-30 kcal/kg Adj IBW d/t GERIAT maintenance) Estimated Protein Required (g/day) 45-56 (0.8-1 gm/kg Adj IBW d/t ARF, GERIAT status) Estimated Fluid Required (l/day) Per physician d/t ARF Problem/Etiology/Signs/Symptoms Increased nutrient need r/t metabolic demands AEB estimated calorie and protein needs for wound healing. (*new) Altered nutrition-related labs related to endocrine and renal dysfunction as evidenced by abnormal BG, POC BG, Na, BUN, and CRE lab values. *ongoing Increased risk for malnutrition related to lack of appetite as evidenced by negligible PO intakes records. *ongoing Expected Outcomes/Goals - Monitor appetite and PO intakes w/ goal of pt meeting at least 50% of estimated nutritional needs, labs trending WNL, normal GI function, and skin integrity/wt maintenance Dietitian Recommendations * Recommend: Pureed CCHO diet, Glucerna TID, Matt BID * Follow ST rec for liquid intake and assist during meals. Follow Up High Risk: F/U in 2-3 days
--- NOTE | 2021-03-04 13:28 | NUR ---
Dietitian Recommendations * Recommend: Pureed CCHO diet, Glucerna TID, Matt BID * Follow ST rec for liquid intake and assist during meals. Please see Nutrition F/U note for details. KALEE, RD
--- NOTE | 2021-03-04 15:37 | NUR ---
Discharge Planning: DCP faxed pt referral to [facility] [phone] DCP to follow up.
[2021-03-04 15:46] VITALS: BP_SYST 99
[2021-03-04] MEDS: INSULIN GLARGINE 100 UNITS/ML 10 ML VIAL SUBCUT SCH (23:47)
[2021-03-05] VITALS (8 sets, daily range): BP systolic 92–128
[2021-03-05] MEDS: LEVOTHYROXINE SODIUM 0.05 MG TABLET PO SCH (06:52)
--- NOTE | 2021-03-05 07:40 | NUR ---
PATIENT'S BS @ 0700 = 60. PATIENT'S ALERT AND ORIENTED X2 WITH NO CHANGES OF MENTATION, NO S/S OF HYPOGLYCEMIA NOTED. SKIN IS DRY AND WARM, NO DIAPHORESIS NOTED. CALLED DR. SPRINGER AND INFORMED OF PATIENT'A BS WITH ORDER TO CHANGE LANTUS FROM 18 TO 14 UNITS AND SLIDING TO LOW COVERAGE. ORDER MADE, NOTED, AND CARRIED OUT. PATIENT'S MADE AWARE. PATIENT IS GIVEN 120CC OF APPLE JUICE. PATIENT DRANK AND TOLERATED IT WELL.
--- NOTE | 2021-03-05 08:39 | NUR ---
PHYSICAL THERAPY CO-SIGN The Physical Therapy Progress Notes documented by Production Staff Worker have been reviewed. Reviewed/Co-Signed by: Jorge L Alex Documentation Done by: HANSEL MARTINEZ PTA Addendum: 03/05/21 at 0840 by Jorge L Alex PT Amended: Links added.
[2021-03-05] MEDS: NIFEdipine 30 MG TAB.ER.24 PO SCH (08:53)
[2021-03-05] MEDS: TACROLIMUS ANHYDROUS 1 MG CAPSULE (PROGRAF) PO SCH ×2 (08:59→21:42)
[2021-03-05] MEDS: ALLOPURINOL 100 MG TABLET (ZYLOPRIM) PO SCH ×2 (09:00→21:42)
[2021-03-05] MEDS: PANTOPRAZOLE SODIUM 40 MG TAB PO SCH ×2 (09:00→21:42)
[2021-03-05] MEDS: mycophenolate mofetiL 250 MG CAPSULE PO SCH ×2 (09:00→21:42)
[2021-03-05] MEDS: BALSAM PERU/CASTOR OIL 60 GM OINT...G. TP SCH (09:00)
[2021-03-05] MEDS: MAGNESIUM CHLORIDE 64 MG TABLET.DR PO SCH ×2 (09:00→21:42)
[2021-03-05] MEDS: SODIUM BICARBONATE 650 MG TABLET PO SCH ×3 (09:00→21:42)
[2021-03-05] MEDS: ASPIRIN 81 MG TABLET(ECOTRIN) PO SCH (09:00)
--- NOTE | 2021-03-05 09:44 | NUR ---
CM: CALLED TO F/U ON BED AVAILABILITY, SPOKE WITH ([place] INTAKE PERSONNEL), I WAS TOLD THAT THE FACILITY WAS HAVING A COVID OUTBREAK, AND THAT THE ISOLATION BED HAD BEEN GIVEN AWAY, SHE ALSO STATED THAT SHE WOULD BE REACHING OUT TO DR. SPRINGER TO SEE IF HE WANTS A DIFFERENT FACILITY FOR THE PATIENT, AGREED TO STAY IN TOUCH TO KEEP ME INFORMED OF DISPOSITION ON BED AVAILABILITY.
--- NOTE | 2021-03-05 13:07 | NUR ---
CM: SPOKE WITH DR SPRINGER, INFORMED OF OUTBREAK AT [facility], REFERRED TO [facility], CALL FOR ROOM, SPOKE WITH AGUSTIN IN ADMITTING , STATES SHE WILL CALL BACK WITH RESULT FOR BED.
--- NOTE | 2021-03-05 15:25 | NUR ---
TALKED TO PTS DAUGHTER CALLED PTS DAUGHTER TO CONFIRM PTS HOME MEDICATIONS PER DR. HOOPER'S REQUEST. PTS DAUGHTER CONFIRMED THAT GABAPENTIN AND CYCLOBENZAPRINE ARE PRN MEDS. WILL CALL PHARMACY TO FIX IN THE SYSTEM Addendum: 03/05/21 at 1837 by Basil Zafar LVN DOCUMENTED IN WRONG PATIENT
[2021-03-05] MEDS ORDERED: INSULIN GLARGINE 100 UNITS/ML 10 ML VIAL SUBCUT SCH (21:00)
[2021-03-06] VITALS (7 sets, daily range): BP systolic 78–130
--- NOTE | 2021-03-06 06:00 | NUR ---
DR SPRINGER MADE AWARE THAT PATIENT'S BLOOD SUGAR WAS 43 AND GIVEN GLUTOSE 15 G AND APPLE JUICE. RECHECKED BLOOD SUGAR AFTER 15 MINS AND WAS 68. OFFERED APPLE JUICE BUT PATIENT REFUSED AT THIS TIME. SHE SAID SHE FELT LIKE THROWING UP. WILL RECHECKED BS AT 0700. Addendum: 03/06/21 at 0809 by [employer] subpoena server MD ORDERED TO DISCONTINUE LANTUS.
[2021-03-06 06:53] LABS: ANION GAP 9 (5-15); BASOPHILS # (AUTO) 0.1 K/uL (0.0-0.2); BASOPHILS % (AUTO) 1.2 % (0.0-2.0); CALCIUM 9.2 mg/dL (8.4-11.0); CHLORIDE 104 mmol/L (98-107); CREATININE 2.83 mg/dL (0.55-1.30); EOSINOPHILS # (AUTO) 0.4 K/uL (0.0-0.4); EOSINOPHILS % (AUTO) 7.1 % (0.0-4.0); GLUCOSE 60 mg/dL (70-99); HEMATOCRIT 25.2 % (36-48); HEMOGLOBIN 8.3 g/dL (12.0-16.0); LYMPHOCYTES # (AUTO) 2.3 K/uL (1.0-5.5); LYMPHOCYTES % (AUTO) 44.5 % (20.5-51.5); MEAN CORPUSCULAR HEMOGLOBIN 29 pg (27-31); MEAN CORPUSCULAR HGB CONC 33 % (32-36); MEAN CORPUSCULAR VOLUME 90 fL (79.0-98.0); MONOCYTES # (AUTO) 0.4 K/uL (0.0-1.0); MONOCYTES % (AUTO) 8.4 % (1.7-9.3); NEUTROPHILS % (AUTO) 38.8 % (40.0-70.0); PLATELET COUNT (AUTO) 335 K/uL (130-430); RED BLOOD CELL COUNT(AUTO) 2.82 MIL/uL (4.2-6.2); RED CELL DISTRIBUTION WIDTH 16.7 % (9.0-15.0); SODIUM SERUM 133 mmol/L (136-145); UREA NITROGEN, BLOOD 74 mg/dL (8-21); WHITE BLOOD COUNT (AUTO) 5.1 K/uL (4.8-10.8)
--- NOTE | 2021-03-06 07:00 | NUR ---
RECHECKED BLOOD SUGAR AND WAS 97. PATIENT WAS ALERT AND ORIENTED WITH S/S OF HYPOGLYCEMIA.
[2021-03-06] MEDS: LEVOTHYROXINE SODIUM 0.05 MG TABLET PO SCH (07:16)
[2021-03-06] MEDS: ASPIRIN 81 MG TABLET(ECOTRIN) PO SCH (10:06)
[2021-03-06] MEDS: ALLOPURINOL 100 MG TABLET (ZYLOPRIM) PO SCH (10:06)
[2021-03-06] MEDS: PANTOPRAZOLE SODIUM 40 MG TAB PO SCH (10:06)
[2021-03-06] MEDS: SODIUM BICARBONATE 650 MG TABLET PO SCH ×2 (10:06→14:30)
[2021-03-06] MEDS: MAGNESIUM CHLORIDE 64 MG TABLET.DR PO SCH (10:07)
[2021-03-06] MEDS: NIFEdipine 30 MG TAB.ER.24 PO SCH (10:07)
[2021-03-06] MEDS: TACROLIMUS ANHYDROUS 1 MG CAPSULE (PROGRAF) PO SCH (10:07)
[2021-03-06] MEDS: mycophenolate mofetiL 250 MG CAPSULE PO SCH (10:07)
[2021-03-06] MEDS: BALSAM PERU/CASTOR OIL 60 GM OINT...G. TP SCH (10:13)
--- NOTE | 2021-03-06 10:56 | NUR ---
NURSE NOTE Pt is in bed resting with no s/s of distress. Pt is A&Ox2. Pupils PERRLA. VSS. Pt has wound on coccyx showing skin tear and also a wound on right heel DTI. Pt has no c/o. No s/s of hypoglycemia present. Pt ate 75% of her breakfast. All scheduled medications given at this time. Bed is in lowest position and call light is within reach. NISSAN SALES CONSULTANT cleaned pt and provided new linen for pt.
--- NOTE | 2021-03-06 13:45 | NUR ---
NURSE NOTE pt has no c/o. IS A&Ox2. VSS. All scheduled medications given at this time. Checked blood sugar and results were 70. Pt ate only about 15% of her breakfast but did consume 75% of her oral fluids. Cleaned pt and provided new linen to having a bowel movement. Also did wound care and dressed wounds with optifoam. Repositioned pt on her left side. Will continue to monitor.
[2021-03-06] MEDS: ACETAMINOPHEN 325 MG TABLET PO PRN (14:35)
[2021-03-06] MEDS ORDERED: SODI650T PO (18:08)
[2021-03-06] MEDS ORDERED: ALLO100T PO (18:09)
[2021-03-06] MEDS ORDERED: TACR1CAP2 PO (18:10)
[2021-03-06] MEDS ORDERED: NIFE90TA24 PO (18:10)
[2021-03-06] MEDS ORDERED: NIFE-55 PO (18:14)
--- NOTE | 2021-03-06 18:14 | NUR ---
NURSE NOTE Pt being discharged. [facility] ambulance here to transport pt. Received consent from daughter (doug) to transfer pt to [facility]. Pt is aware and has no c/o.Pt has a lopez cath in place and a PICC line on left upper arm in place that is patent. Pt has belongings with her (2 blankets, 2 flower vases, and two lotions). VSS. Pt clean and not soiled. Report was given to Ofe from [facility] and is aware pt has invasive lines and two wounds (sacrum and right heel).
--- NOTE | 2021-03-06 18:22 | NUR ---
DAUGHTER AWARE OF TRANSFER AMBULANCE CAME TO INFORM THE STAFF THAT THEY ARE HERE TO PBX REPAIRER THE PATIENT. NO ORDERS TO TRANSFER PATIENT, NURSE ARE NOT AWARE THAT PT WILL BE TRANSFER TODAY. DAUGHTER STEPHANIE AGREED TO TRANSFER PATIENT TO [facility] FOR CONSENT TO TRANSFER, DR SPRINGER IS HERE AND GAVE ORDERED TO TRANSFER PATIENT
== END 2021-03-06 18:22 | DRG 871 ==
LOC: SED 16:50 → STU 19:50
PROVIDERS: ADMIT Internal Medicine; ATTEND Internal Medicine
PROC: 4A10X4Z Monitoring of Central Nervous Electrical Activity, External Approach (ICD-10-PCS; principal; 2021-02-23)
PROC: 05HY33Z Insertion of Infusion Device into Upper Vein, Percutaneous Approach (ICD-10-PCS; 2021-02-24)
PROC: B54NZZA Ultrasonography of Left Upper Extremity Veins, Guidance (ICD-10-PCS; 2021-02-24)
DX: A41.50 Gram-negative sepsis, unspecified (principal); E11.10 Type 2 diabetes mellitus with ketoacidosis without coma; E43 Unspecified severe protein-calorie malnutrition; G93.41 Metabolic encephalopathy; N18.6 End stage renal disease; T86.19 Other complication of kidney transplant; N17.9 Acute kidney failure, unspecified; E87.1 Hypo-osmolality and hyponatremia; N12 Tubulo-interstitial nephritis, not specified as acute or chronic; D84.9 Immunodeficiency, unspecified; I48.20 Chronic atrial fibrillation, unspecified; I12.0 Hypertensive chronic kidney disease with stage 5 chronic kidney disease or end stage renal disease; E78.5 Hyperlipidemia, unspecified; E03.9 Hypothyroidism, unspecified; K57.90 Diverticulosis of intestine, part unspecified, without perforation or abscess without bleeding; Z20.822 Contact with and (suspected) exposure to COVID-19; K56.41 Fecal impaction; Y83.0 Surgical operation with transplant of whole organ as the cause of abnormal reaction of the patient, or of later complication, without mention of misadventure at the time of the procedure; E11.22 Type 2 diabetes mellitus with diabetic chronic kidney disease; L89.90 Pressure ulcer of unspecified site, unspecified stage; R33.9 Retention of urine, unspecified; Z99.2 Dependence on renal dialysis; Z86.73 Personal history of transient ischemic attack (TIA), and cerebral infarction without residual deficits; Z68.35 Body mass index [BMI] 35.0-35.9, adult; Y92.89 Other specified places as the place of occurrence of the external cause
CPT/HCPCS: 36415; 36600; 70450-TC; 71045; 76376; 80048; 80053; 80061; 80197; 81000; 82009; 82043; 82140; 82570; 82803-TC; 82962; 83605; 83690; 83735; 83880; 83930; 83935; 84100; 84300-TC; 84302; 84443; 84484; 84550; 85025; 87040-TC; 87081; 87086; 92610-GN; 93005; 93306; 95816; 96361; 96365; 96375; 97110-GP; 97530-GP; 99291; G0378; J0360; J0610; J0692; J0696; J1815; J1885; J1940; J2405; J2543; J2765; J3480; J3490; J7060; J7507; J7517